=== PATIENT | male | born 1940 | race Caucasian/White ===

== ENCOUNTER 2023-07-01 22:24 | Emergency (ER) | payer MEDICARE, SELFPAY ==
[2023-07-01 22:25] VITALS: BP 136/61; PULSE 82; RESP 16; TEMP 36.6; O2SAT 97
--- NOTE | 2023-07-01 22:47 | CT_ITS ---
STUDY: CT BRAIN WITHOUT CONTRAST REASON FOR EXAM: Male, 82 years old. fall RADIATION DOSAGE (If Supplied By Facility): CTDIvol = ( 44.99 ) mGy, DLP = ( 796.11 ) mGycm TECHNIQUE: Transaxial CT imaging of the brain was performed without administration of intravenous contrast material. Individualized dose optimization techniques were used for this CT. COMPARISON: No relevant priors. FINDINGS: Moderate right parietal scalp hematoma. Normal calvarium. There is moderate cerebral atrophy with widening of the extra-axial spaces and ventricular dilatation. There are areas of decreased attenuation within the white matter tracts of the supratentorial brain, consistent with microvascular disease changes. Normal basal ganglia and thalami. Normal brainstem. Normal cerebellum. There is no intracranial hemorrhage. There are no findings of an acute ischemic infarction. Normal visualized paranasal sinuses. CT/Brain/Head without Contrast IMPRESSION: Moderate right parietal scalp hematoma. No intracranial hemorrhage. Electronically Signed: Kyle Sauceda MD at 23:29 EDT ,
--- NOTE | 2023-07-01 22:47 | ED.VIS.FALL ---
HPI HPI - Fall History of Present Illness Chief Complaint: Fall Informant: patient and family (x2) Narrative Narrative: 82-year-old male with history of dementia lives at home with family had an unwitnessed fall in the bathroom. Family went to check on him and they saw that he was alert and awake but had evidence of injury to his right head and upper extremity. He denies having any pain. Patient does not remember and history from him is limited due to his dementia. States he feels fine. Takes no anticoagulants, just baby aspirin no other antiplatelets. [facility] Medical History Dementia Allergy/AdvReac Type Severity Reaction Status Date / Time No Known Allergies Allergy Verified 07/01/23 22:28 Social History Smoking Status: Never smoker ROS ROS ED Review of Systems ROS Unobtainable: other Details: Limited ROS due to dementia Eyes Eyes: Denies change in vision ENT ENT ED: Denies ear pain or epistaxis Cardiovascular Cardiovascular: Denies chest pain Respiratory/Chest Respiratory/Chest: Denies dyspnea Gastrointestinal Gastrointestinal: Denies abdominal pain, nausea or vomiting Musculoskeletal Musculoskeletal: Denies back pain, extremity pain or neck pain Integumentary Denies laceration Neurologic Neurologic: Denies headache(s), paresthesias or weakness EXAM Physical Exam Const Vital Signs: 07/01/23 22:25 07/01/23 22:48 Temperature 97.8 F Temperature Source Temporal Pulse Rate 82 Respiratory Rate 16 Respiratory Effort Normal Blood Pressure 136/61 H Blood Pressure Mean 86 Pulse Ox 97 Oxygen Delivery Method Room Air Room Air Positive well nourished and well developed General Appearance ED: well developed and NAD HEENT Reports TM's clear and nasal mucous membranes and turbinates normal HEENT Narrative: Tenderness, contusion, hematoma right frontal parietal. Large around 15 cm diameter. It is boggy. There is no palpable crepitance or depression although this is limited due to the size of the hematoma. No Patel sign no periorbital ecchymosis. No CSF otorhinorrhea. trauma and hematoma Face and Sinus: facial tenderness Tympanic Membrane ED: Yes TM's clear Eyes PERRL and EOMs intact bilaterally Visual Acuity: other Other Details: no entrapment or pain with extraocular movements Neck full ROM and supple General: Negative for tenderness Chest Wall inspection of chest normal and palpation of chest normal Chest: symmetrical chest wall rise; Negative for crepitus or tenderness Resp normal respiratory effort and clear to auscultation bilaterally Percussion: other equal BS bilat Cardio Cardio Narrative: Faint heart sounds Rate: regular rate Rhythm: regular rhythm GI normal to inspection, nondistended, normoactive bowel sounds, soft to palpation and non-tender Back/Spine normal ROM Cervical Spine: Negative for cervical spine tenderness Thoracic Spine / Upper Back: Negative for thoracic spinal tenderness Lumbar Spine / Lower Back: Negative for lumbar spinal tenderness Extremity full ROM Extremity Narrative: Ecchymosis to the lateral aspect of the right elbow and the ulnar aspect of the right wrist. No tenderness. Full range of motion both of these joints without any pain including pronation supination at the wrist. The other 3 extremities move also without any signs of trauma or pain. General Extremety ED: Negative for tenderness Neuro CN's II-XII intact bilaterally, moves all extremities, no focal motor deficits and no sensory deficits noted Neuro Narrative: Alert and oriented to person and family, at baseline according to family Sahra Coma Scale: document GCS findings Spontaneous Obeys Commands Confused 14 Sensorium / Orientation: awake and alert Psych mental status grossly normal and thought process normal Skin no wounds Lesions: no lesions Rashes: no rashes MDM MDM MDM Narrative Medical decision making narrative: He has evidence of bruising to various aspect of the right upper extremity but he can move everything okay and there is no bony tenderness I do not think he needs any x-rays family in agreement. We did perform a CT of the head though. CT of the head was obtained in order to rule out intracranial injury, I reviewed the images and report which I agree with, negative for anything acute. Patient doing well, given family appropriate discharge instructions and reasons to return. Radiography Diagnostic Testing: Clinical Impression(s) from Imaging Studies Brain CT 07/01/23 22:47 IMPRESSION: Moderate right parietal scalp hematoma. No intracranial hemorrhage. Electronically Signed: Kyle Sauceda MD at 23:29 EDT , Discharge Plan Triage Chief Complaint: Fall ED Provider: Leander Ospina Dx/Rx/DC Orders Clinical Impression: Closed head injury without loss of consciousness, Contusion of multiple sites of right arm Instructions: ED Head Injury (Adult) Primary Care Provider: Care Physician,No Primary Referrals: Doctor,Your [Non-Staff] - As Needed Disposition Disposition: Home, Self Care
[2023-07-01 22:48] VITALS: BMI 26.4
== END 2023-07-02 00:58 | disposition home or self-care (01) ==
PROVIDERS: Emergency Provider Emergency Medicine; Visit Provider Emergency Medicine
DX: S09.90XA Unspecified injury of head, initial encounter (principal); F03.90 Unspecified dementia, unspecified severity, without behavioral disturbance, psychotic disturbance, mood disturbance, and anxiety; W19.XXXA Unspecified fall, initial encounter; S40.021A Contusion of right upper arm, initial encounter
CPT/HCPCS: 70450; 99282

== ENCOUNTER → 2023-08-22 | Outpatient (CLI) | payer MEDICARE, SELFPAY ==
[2023-08-22 16:49] LABS: Absolute Lymphocyte Count 1.31 X10^3/uL (0.83-4.51); Absolute Neutrophil Count 6.6 X10^3/uL (2.0-7.7); Basophil# 0.08 X10^3/uL; Basophil% 0.9 % (0-1); Eosinophil# 0.03 X10^3/uL; Eosinophils% 0.3 % (0-5); Hematocrit 47.1 % (40-54); Hemoglobin 16.9 g/dL (13.0-16.5); Lymphocyte # 1.31 X10^3/ul (0.83-4.51); Lymphocyte % 14.5 % (19-41); Mean Corp Hgb Conc 35.9 g/dL (32-36); Mean Corpuscular Hgb 42.3 pg (27.0-32.0); Mean Corpuscular Volume 117.8 fL (80-94); Mean Platelet Vol. 10.3 fl (6.2-12.0); Monocyte# 0.94 X10^3/uL; Monocyte% 10.4 % (0-10); NRBC Flagged by Analyzer 0 % (0-5); Neutrophil # 6.59 X10^3/uL (2.7-7.7); Neutrophil % 73.2 % (47-70); Platelet Count 215 K/mm3 (150-450); RBC Distribution Width SD 49.1 fl (35.1-43.9)
[2023-08-22 17:12] LABS: Color, Urine Yellow (Yellow); Glucose, Dipstick Normal (Normal); Ketone-Dipstick 5 mg/dl (Negative); Leukocyte Esterase-Dipstick 500 /ul (Negative); Nitrite-Dipstick Positive (Negative); Occult Blood-Urine Negative /ul (Negative); Protein-Dipstick 30 mg/dl (Negative); Specific Gravity, Urine 1.005 (1.002-1.030); Urine Bilirubin Dipstick Negative (Negative); Urine Clarity Clear (Clear); Urine Urobilinogen Normal (Normal)
[2023-08-22 17:59] LABS: ALB/GLOB Ratio 0.8 RATIO (0.9-2.4); AST(SGOT) 28 U/L (15-37); Alanine Aminotransfer ALT/SGPT 30 U/L (16-61); Albumin, Serum 3.5 g/dL (3.2-5.0); Alkaline Phosphatase 160 U/L (45-117); Anion Gap 5 (5-15); BUN 10 mg/dL (7-18); BUN/Creat Ratio 7.8 RATIO (10-20); Calcium,Total 9.3 mg/dL (8.5-10.1); Chloride 99 mmol/L (98-107); Cholesterol 165 mg/dL (200); Creatinine, Serum 1.29 mg/dL (0.70-1.30); EST Glomerular Filtration Rate 56 mL/min (>60); Est Glom Filt Rate - Afr Amer 68 mL/min (>60); Globulin 4.2 g/dL (2.2-4.2); Glucose 110 mg/dL (74-106); High Density Lipoprotein 86 mg/dL; Potassium 3.7 mmol/L (3.5-5.1); Protein, Total 7.7 g/dL (6.4-8.2); Sodium Level 128 mmol/L (136-145); Thyroid Stim Hormone (TSH) 1.93 uIU/mL (0.358-3.74); Triglycerides 97 mg/dL; Uric Acid 2.5 mg/dL (3.5-7.2); Very Low Density Lipoprotein 19 mg/dL (5-40)
[2023-08-22 18:26] LABS: Hepatitis C Antibody Non-Reactive (Nonreactive); Syphilis Antibodies Non-reactive; Vitamin B12 1975 pg/mL (211-911); Vitamin D,25 Hydroxy 76.3 ng/mL
== END | disposition home or self-care (01) ==
LOC: LAB 15:40
PROVIDERS: Referring Provider Family Medicine Geriatric Medicine; Visit Provider Family Medicine Geriatric Medicine
DX: E78.5 Hyperlipidemia, unspecified (principal); I10 Essential (primary) hypertension; Z13.89 Encounter for screening for other disorder; M10.9 Gout, unspecified; E55.9 Vitamin D deficiency, unspecified; N39.0 Urinary tract infection, site not specified
CPT/HCPCS: 36415; 80053; 80061; 81002; 82306; 82607; 82746; 84443; 84550; 85025; 86780; 86803

== ENCOUNTER → 2023-09-02 | Outpatient (CLI) | payer MEDICARE, SELFPAY ==
--- NOTE | 2023-09-02 13:07 | US_ITS ---
STUDY: ULTRASOUND - URINARY BLADDER REASON FOR EXAM: Male, 82 years old. UTI TECHNIQUE: Ultrasound evaluation of the urinary bladder was performed with real-time and static fairchild-scale imaging. COMPARISON: None. FINDINGS: There is no right UVJ calculus. There is a visualized right ureteral jet. There is no left UVJ calculus. There is a visualized left ureteral jet. The distended volume of the urinary bladder is 650 ml. The empty volume of the urinary bladder is 314 ml. The bladder wall is diffusely thickened. The bladder wall measures 5 mm. There is no demonstrated bladder wall mass lesion. There are no demonstrated bladder calculi. US/Post Void Residual Bladder IMPRESSION: Significant postvoid residual with diffuse bladder wall thickening possibly from bladder outlet obstruction. Electronically Signed: Kyle Sauceda MD at 15:52 EDT ,
== END | disposition home or self-care (01) ==
PROVIDERS: PCP Family Medicine Geriatric Medicine; Referring Provider Family Medicine Geriatric Medicine; Visit Provider Family Medicine Geriatric Medicine
DX: N39.0 Urinary tract infection, site not specified (principal); E87.1 Hypo-osmolality and hyponatremia; I10 Essential (primary) hypertension; R32 Unspecified urinary incontinence
CPT/HCPCS: 36415; 51798; 80048; 83930; 83935; 84300

== ENCOUNTER → 2023-09-02 | Outpatient (CLI) | payer MEDICARE, SELFPAY ==
[2023-09-02 16:18] LABS: Anion Gap 8 (5-15); BUN 8 mg/dL (7-18); BUN/Creat Ratio 5.4 RATIO (10-20); Calcium,Total 9.1 mg/dL (8.5-10.1); Chloride 96 mmol/L (98-107); Creatinine, Serum 1.48 mg/dL (0.70-1.30); EST Glomerular Filtration Rate 48 mL/min (>60); Est Glom Filt Rate - Afr Amer 58 mL/min (>60); Glucose 106 mg/dL (74-106); Potassium 3.1 mmol/L (3.5-5.1); Sodium Level 132 mmol/L (136-145)
[2023-09-02 17:55] LABS: Urine Sodium 38 mmol/L (Not Establ.)
[2023-09-02 18:03] LABS: Osmolality, Serum 282 mOsm/KG (280-301); Osmolality, Urine 154 mOsm/KG
== END | disposition home or self-care (01) ==
LOC: POLAB3 14:25
PROVIDERS: PCP Family Medicine Geriatric Medicine; Referring Provider Family Medicine Geriatric Medicine; Visit Provider Family Medicine Geriatric Medicine
DX: E87.1 Hypo-osmolality and hyponatremia (principal); I10 Essential (primary) hypertension
CPT/HCPCS: 36415; 80048; 83930; 83935; 84300

== ENCOUNTER → 2023-09-24 | Outpatient (CLI) | payer MEDICARE, SELFPAY ==
[2023-09-24 11:18] LABS: Anion Gap 7 (5-15); BUN 13 mg/dL (7-18); BUN/Creat Ratio 9.9 RATIO (10-20); Calcium,Total 9.5 mg/dL (8.5-10.1); Chloride 97 mmol/L (98-107); Creatinine, Serum 1.31 mg/dL (0.70-1.30); EST Glomerular Filtration Rate 55 mL/min (>60); Est Glom Filt Rate - Afr Amer 67 mL/min (>60); Glucose 108 mg/dL (74-106); PSA,Total - Annual Screen 3.13 ng/mL (0.00-4.00); Potassium 3.9 mmol/L (3.5-5.1); Sodium Level 130 mmol/L (136-145)
== END | disposition home or self-care (01) ==
LOC: LAB 10:11
PROVIDERS: PCP Family Medicine Geriatric Medicine; Referring Provider Urology; Visit Provider Urology
DX: Z12.5 Encounter for screening for malignant neoplasm of prostate (principal); I10 Essential (primary) hypertension
CPT/HCPCS: 36415; 80048; 84153; G0103

== ENCOUNTER → 2024-02-17 | Outpatient (CLI) | payer MEDICARE, SELFPAY ==
[2024-02-17 15:54] LABS: Absolute Lymphocyte Count 1.07 X10^3/uL (0.83-4.51); Absolute Neutrophil Count 3.9 X10^3/uL (2.0-7.7); Basophil# 0.04 X10^3/uL; Basophil% 0.7 % (0-1); Eosinophil# 0.07 X10^3/uL; Eosinophils% 1.2 % (0-5); Hematocrit 40.8 % (40-54); Hemoglobin 14.9 g/dL (13.0-16.5); Lymphocyte # 1.07 X10^3/ul (0.83-4.51); Lymphocyte % 18.4 % (19-41); Mean Corp Hgb Conc 36.5 g/dL (32-36); Mean Corpuscular Hgb 44.1 pg (27.0-32.0); Mean Corpuscular Volume 120.7 fL (80-94); Mean Platelet Vol. 9.1 fl (6.2-12.0); Monocyte# 0.71 X10^3/uL; Monocyte% 12.2 % (0-10); NRBC Flagged by Analyzer 0 % (0-5); Neutrophil # 3.88 X10^3/uL (2.7-7.7); Neutrophil % 66.8 % (47-70); Platelet Count 238 K/mm3 (150-450); RBC Distribution Width CV 12.1 % (11.6-14.6); RBC Distribution Width SD 54.7 fl (35.1-43.9); Red Blood Count 3.38 M/mm3 (4.6-6.2); White Blood Count 5.8 K/mm3 (4.4-11.0)
[2024-02-17 16:14] LABS: Vitamin D,25 Hydroxy 27.7 ng/mL
[2024-02-17 16:21] LABS: ALB/GLOB Ratio 0.8 RATIO (0.9-2.4); AST(SGOT) 20 U/L (15-37); Alanine Aminotransfer ALT/SGPT 22 U/L (16-61); Albumin, Serum 3.3 g/dL (3.2-5.0); Alkaline Phosphatase 125 U/L (45-117); Anion Gap 7 (5-15); BUN 19 mg/dL (7-18); BUN/Creat Ratio 10.3 RATIO (10-20); Calcium,Total 9.1 mg/dL (8.5-10.1); Chloride 104 mmol/L (98-107); Cholesterol 273 mg/dL (200); Creatinine, Serum 1.85 mg/dL (0.70-1.30); EST Glomerular Filtration Rate 37 mL/min (>60); Est Glom Filt Rate - Afr Amer 45 mL/min (>60); Globulin 4.1 g/dL (2.2-4.2); Glucose 133 mg/dL (74-106); High Density Lipoprotein 41 mg/dL; Potassium 4.5 mmol/L (3.5-5.1); Protein, Total 7.4 g/dL (6.4-8.2); Sodium Level 135 mmol/L (136-145); Triglycerides 506 mg/dL; Uric Acid 4.3 mg/dL (3.5-7.2)
== END | disposition home or self-care (01) ==
LOC: LAB 15:17
PROVIDERS: PCP Family Medicine Geriatric Medicine; Referring Provider Family Medicine Geriatric Medicine; Visit Provider Family Medicine Geriatric Medicine
DX: I10 Essential (primary) hypertension (principal); E78.5 Hyperlipidemia, unspecified; E55.9 Vitamin D deficiency, unspecified; M10.9 Gout, unspecified
CPT/HCPCS: 36415; 80053; 80061; 82306; 84443; 84550; 85025

== ENCOUNTER → 2024-05-26 | Outpatient (CLI) | payer MEDICARE, SELFPAY | END | disposition home or self-care (01) | PROVIDERS: PCP Family Medicine Geriatric Medicine; Referring Provider Family Medicine Geriatric Medicine; Visit Provider Family Medicine Geriatric Medicine | DX: J98.8 Other specified respiratory disorders (principal); R63.0 Anorexia | CPT/HCPCS: 36415; 71046; 80053; 85025; 87631 ==

== ENCOUNTER → 2024-05-26 | Outpatient (CLI) | payer MEDICARE, SELFPAY ==
--- NOTE | 2024-05-26 16:42 | RAD_ITS ---
PROCEDURE: CHEST PA AND LATERAL 05/26/2024 REASON FOR EXAM: CONGESTION OF RESPIRATORY TRACT TECHNIQUE: Frontal and lateral views of the chest. COMPARISON: None available FINDINGS: The lungs appear clear. Pulmonary vascularity appears within limits. No pleural effusion. The cardiac and mediastinal contours appear within limits. Ectatic appearing thoracic aorta with atherosclerotic change of the arch. 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 RAD/Chest PA and Lateral IMPRESSION: No evidence of acute disease. Reading Location: [id number]
[2024-05-26 17:24] LABS: Absolute Lymphocyte Count 1.17 X10^3/uL (0.83-4.51); Absolute Neutrophil Count 3.6 X10^3/uL (2.0-7.7); Basophil# 0.04 X10^3/uL; Basophil% 0.7 % (0-1); Eosinophil# 0.02 X10^3/uL; Eosinophils% 0.4 % (0-5); Hematocrit 41.5 % (40-54); Hemoglobin 15.1 g/dL (13.0-16.5); Lymphocyte # 1.17 X10^3/ul (0.83-4.51); Lymphocyte % 20.5 % (19-41); Mean Corp Hgb Conc 36.4 g/dL (32-36); Mean Corpuscular Hgb 42.8 pg (27.0-32.0); Mean Corpuscular Volume 117.6 fL (80-94); NRBC Flagged by Analyzer 0 % (0-5); Neutrophil # 3.64 X10^3/uL (2.7-7.7); Neutrophil % 63.9 % (47-70); Platelet Count 195 K/mm3 (150-450); RBC Distribution Width CV 13.7 % (11.6-14.6); RBC Distribution Width SD 60.7 fl (35.1-43.9); Red Blood Count 3.53 M/mm3 (4.6-6.2); White Blood Count 5.7 K/mm3 (4.4-11.0)
[2024-05-26 18:07] LABS: ALB/GLOB Ratio 1.1 RATIO (0.9-2.4); AST(SGOT) 24 U/L (<=37); Alanine Aminotransfer ALT/SGPT 10 U/L (<=46); Albumin, Serum 3.9 g/dL (3.4-4.8); Alkaline Phosphatase 141 U/L (40-129); Anion Gap 16 (5-15); BUN 27 mg/dL (4-19); BUN/Creat Ratio 15.5 RATIO (10-20); Calcium,Total 9.1 mg/dL (7.6-11.0); Carbon Dioxide 17.9 mmol/L (21.0-32.0); Chloride 103 mmol/L (98-108); Creatinine, Serum 1.74 mg/dL (0.70-1.20); EST Glomerular Filtration Rate 38 (>60); Globulin 3.6 g/dL (2.2-4.2); Glucose 133 mg/dL (70-99); Potassium 3.9 mmol/L (3.3-5.1); Protein, Total 7.4 g/dL (5.9-8.4); Sodium Level 136 mmol/L (133-145); Total Bilirubin 0.39 mg/dL (0.00-1.30)
== END | disposition home or self-care (01) ==
PROVIDERS: PCP Family Medicine Geriatric Medicine; Referring Provider Family Medicine Geriatric Medicine; Visit Provider Family Medicine Geriatric Medicine
DX: J98.8 Other specified respiratory disorders (principal); R63.0 Anorexia
CPT/HCPCS: 36415; 71046; 80053; 85025

== ENCOUNTER → 2024-08-24 | Outpatient (CLI) | payer MEDICARE, SELFPAY ==
[2024-08-24 16:05] LABS: Absolute Neutrophil Count 3.1 X10^3/uL (2.0-7.7); Basophil# 0.02 X10^3/uL; Basophil% 0.4 % (0-1); Eosinophil# 0.02 X10^3/uL; Eosinophils% 0.4 % (0-5); Hematocrit 40.3 % (40-54); Hemoglobin 14.4 g/dL (13.0-16.5); Lymphocyte % 17.4 % (19-41); Mean Corp Hgb Conc 35.7 g/dL (32-36); Mean Corpuscular Hgb 43.1 pg (27.0-32.0); Mean Corpuscular Volume 120.7 fL (80-94); Mean Platelet Vol. 9.9 fl (6.2-12.0); Monocyte# 0.67 X10^3/uL; Monocyte% 14.5 % (0-10); NRBC Flagged by Analyzer 0 % (0-5); Neutrophil # 3.07 X10^3/uL (2.7-7.7); Neutrophil % 66.6 % (47-70); Platelet Count 210 K/mm3 (150-450); RBC Distribution Width CV 13.2 % (11.6-14.6); Red Blood Count 3.34 M/mm3 (4.6-6.2); White Blood Count 4.6 K/mm3 (4.4-11.0)
[2024-08-24 17:05] LABS: ALB/GLOB Ratio 1.2 RATIO (0.9-2.4); AST(SGOT) 23 U/L (<=37); Alanine Aminotransfer ALT/SGPT 14 U/L (<=46); Alkaline Phosphatase 119 U/L (40-129); Anion Gap 13 (5-15); BUN 25 mg/dL (4-19); BUN/Creat Ratio 14.9 RATIO (10-20); Calcium,Total 9.1 mg/dL (7.6-11.0); Carbon Dioxide 22.2 mmol/L (21.0-32.0); Chloride 100 mmol/L (98-108); Creatinine, Serum 1.66 mg/dL (0.70-1.20); EST Glomerular Filtration Rate 40 (>60); Globulin 3.3 g/dL (2.2-4.2); Glucose 113 mg/dL (70-99); Potassium 4.1 mmol/L (3.3-5.1); Protein, Total 7.3 g/dL (5.9-8.4); Sodium Level 135 mmol/L (133-145); Total Bilirubin 0.58 mg/dL (0.00-1.30)
[2024-08-24 17:15] LABS: Vitamin D,25 Hydroxy 36.3 ng/mL (30-100)
== END | disposition home or self-care (01) ==
LOC: LAB 15:07
PROVIDERS: PCP Family Medicine Geriatric Medicine; Referring Provider Family Medicine Geriatric Medicine; Visit Provider Family Medicine Geriatric Medicine
DX: I10 Essential (primary) hypertension (principal); M10.9 Gout, unspecified; E55.9 Vitamin D deficiency, unspecified
CPT/HCPCS: 36415; 80053; 82306; 84443; 84550; 85025

== ENCOUNTER → 2024-10-20 | Outpatient (CLI) | payer MEDICARE, SELFPAY ==
--- OUTSIDE RECORDS SUMMARY | 2024-10-20 21:19 | XMS RPT_ITS | CCD ---
Author Organization [facility] Care Team Providers Care [facility] Paramedic Name Role Phone Unavailable Primary Care Provider Unavaileliud e Jacques CELESTIN, Dr. Georges Gonzalez Primary Care Provider Jacques CELESTIN, Dr. Georges Gonzalze Attending Provider Jacques CELESTIN, Dr. Georges Gonzalez Referring Provider [phone] Jacques CELESTIN, Dr. Georges Gonzalez Primary Care Provider [phone] Jacques CELESTIN, Dr. Georges Gonzalez Attending Provider Jacques CELESTIN, Dr. Georges Gonzalez Referring Provider Jacques, Georges Chi Referring Unavailable Jacques, Georges Chi Primary Care Unavailable Jacques, Georges Chi Attending Unavailable Jacques, Georges Chi Primary Care Unavailable Jacques, Georges Chi Attending Unavailable Jacques, Georges Chi Referring Unavailable Jacques, Georges Chi Referring Unavailable Jacques, Georges Chi Primary Care Unavailable Jacques, Georges Chi Attending Unavailable Jacques, Georges Chi Primary Care Unavailable Jacques, Georges Chi Attending Unavailable Jacques, Georges Chi Referring Unavailable Jacques, Georges Chi Primary Care Unavailable Jacques, Georges Chi Attending Unavailable Jacques, Georges Chi Referring Unavailable Medications Current Medications Medication Drug Class(es) Dates Sig (Normalized) Sig (Original) doxycycline monohydrate 100 mg oral tablet (1 source) Tetracycline-class Drug Start: 05-20-2023 End: 05-27-2023 take 1 tablet by mouth twice daily doxycycline monohydrate 100 mg tablet Take 1 tablet by mouth two times a day for 7 days. 14 tablet 0 05/20/2023 05/27/2023 Active Comment on above: Take 1 tablet by cherie th two times a day for 7 days. lisinopril 20 mg oral tablet (2 sources) Angiotensin Converting Enzyme Inhibitor Start: 09-04-2007 LISINOPRIL 20 MG TAB Take one(1) tablet daily. 90 3 09/04/2007 Active Comment on above: Take one(1) tablet d aily. simvastatin 20 mg oral tablet (2 sources) HMG-CoA Reductase Inhibitor Start: 09-04-2007 SIMVASTATIN 20 MG TAB Take one(1) tablet daily. 90 3 09/04/2007 Active Comment on above: Take one(1) tablet d aily. Problems Active Problems Problem Classification Problem Date Documented Da te Episodic/Chronic Disorders of lipid metabolism (2 sources) Hyperlipidemia; Translations: [Hyperlipidemia, unspecified] Onset: 09-02-2006 09-02-2006 Chronic Essential hypertension (3 sources) Benign essential hypertension; Translations: [Essential (primary) hypertension] Onset: 08-26-2024 04-11-2005 Chronic Other and unspecified benign neoplasm (2 sources) History of polyp of colon; Translations: [Personal history of colonic polyps] 04-11-2005 Episodic Other injuries and conditions due to external causes (4 sources) Closed injury of head; Translations: [Unspecified injury of head, initial encounter] 07-02-2023 Episodic Other lower respiratory disease (2 sources) Cough; Translations: [Subacute cough] 05-20-2023 Episodic Other lower respiratory disease (2 sources) Other specified respiratory disorders; Translations: [Other specified respiratory disorders] Onset: 05-30-2024 Episodic Pneumonia (except that caused by tuberculosis or sexually transmitted disease) (1 source) Bronchopneumonia; Translations: [Bronchopneumonia, unspecified organism] 05-20-2023 Episodic Superficial injury; contusion (4 sources) Contusion of multiple sites of upper limb; Translations: [Contusion of right upper arm, initial encounter] 07-02-2023 Episodic Unclassified (1 source) Subacute cough; Translations: [Subacute cough] Onset: 05-20-2023 Past or Other Problems Problem Classification Problem Date Documented Da te Episodic/Chronic Other connective tissue disease (2 sources) Plantar fascial fibromatosis; Translations: [Plantar fascial fibromatosis] Onset: 09-26-2005 09-26-2005 Episodic Other connective tissue disease (2 sources) Pain in limb; Translations: [Pain in unspecified limb] Onset: 09-04-2007 09-04-2007 Episodic Other screening for suspected conditions (not mental disorders or infectious disease) (2 sources) Patient encounter status; Translations: [Encounter for screening for malignant neoplasm of prostate] Onset: 04-12-2005 04-12-2005 Episodic Results Test Name Value Interpretation Reference Range Facility Absolute lymphocyte countOrd ered By: Georges Hanna on 08-24-2024 Lymphocytes Auto (Unsp spec) [#/Vol] 0.80 10*3/uL Low 0.83-4.51 [facility] Absolute neutrophil countOrd ered By: Georges Hanna on 08-24-2024 Neutrophils (Bld) [#/Vol] 3.1 10*3/uL 2.0-7.7 [facility] Anion gap in Serum or Plasma Ordered By: Georges Hanna on 08-24-2024 Anion gap [Moles/Vol] 13 mmol/L 5-15 [facility] Automated lymphocyte count a s percentage of total leukocytesOrdered By: Georges Hanna on 08-24-2024 Lymphocytes/100 WBC Auto (Unsp spec) 17.4 % Low 19-41 [facility] BUN/creatinine [facility]Ordered By: [facility] 08-24-2024 Urea nitrogen/Creatinine [Mass ratio] 14.9 mg/mg 10-20 [facility] Basophil percentageOrdered B y: Georges Hanna on 08-24-2024 Basophils/100 WBC (Bld) 0.4 % 0-1 [facility] Bilirubin, totalOrdered By: Georges Hanna on 08-24-2024 Bilirubin [Mass/Vol] 0.58 mg/dL 0.00-1.30 [facility] CBC W/Diff, Automatedon 07-28 Absolute Lymph 0.80 X10 3/uL Low 0.83-4.51 [facility] Comment on above: Performed By: #### L [id number], L100.0100, L501.1400, L500.4050, L506.1001 #### [facility] [address] [place], [address] Absolute Neut 3.1 X10 3/uL Normal 2.0-7.7 [facility] Comment on above: Performed By: #### L [id number], L100.0100, L501.1400, L500.4050, L506.1001 #### [facility] [address] [place], [address] Basophils/100 WBC (Bld) 0.4 % Normal 0-1 [facility] Comment on above: Performed By: #### L [id number], L100.0100, L501.1400, L500.4050, [id number] #### [facility] [address] [place], [address] Eosinophils/100 WBC (Bld) 0.4 % Normal 0-5 [facility] Comment on above: Performed By: #### L [id number], L100.0100, L501.1400, L500.4050, L506.1001 #### [facility] [address] [place], [address] Erythrocyte distribution width (RBC) [Ratio] 13.2 % Normal 11.6-14.6 [facility] Comment on above: Performed By: #### L [id number], L100.0100, L501.1400, L500.4050, L506.1001 #### [facility] [address] [place], [address] Hematocrit (Bld) [Volume fraction] 40.3 % Normal 40-54 [facility] Comment on above: Performed By: #### L [id number], L100.0100, L501.1400, L500.4050, L506.1001 #### [facility] [address] [place], [address] Hemoglobin (Bld) [Mass/Vol] 14.4 g/dL Normal 13.0-16.5 [facility] Comment on above: Performed By: #### L [id number], L100.0100, L501.1400, L500.4050, L506.1001 #### [facility] [address] [place], [address] IG% 0.700 Normal 0.0-0.9 [facility] Comment on above: Result Comment: IG% - Immature Granulocytes (promyelocytes, myelocytes and metamyelocytes) > 1% indicates that a LEFT SHIFT is Present. Performed By: #### L [id number], L100.0100, L501.1400, L500.4050, L506.1001 #### [facility] [address] [place], [address] Lymphocytes/100 WBC (Bld) 17.4 % Low 19-41 [facility] Comment on above: Performed By: #### L [id number], L100.0100, L501.1400, L500.4050, L506.1001 #### [facility] [address] [place], [address] MCH (RBC) [Entitic mass] 43.1 pg High 27.0-32.0 [facility] Comment on above: Performed By: #### L [id number], L100.0100, L501.1400, L500.4050, L506.1001 #### [facility] [address] [place], [address] MCHC (RBC) [Mass/Vol] 35.7 g/dL Normal 32-36 [facility] Comment on above: Performed By: #### L [id number], L100.0100, L501.1400, L500.4050, L506.1001 #### [facility] [address] [place], [address] MCV (RBC) [Entitic vol] 120.7 fL High 80-94 [facility] Comment on above: Performed By: #### L [id number], L100.0100, L501.1400, L500.4050, L506.1001 #### [facility] [address] [place], [address] Monocytes/100 WBC (Bld) 14.5 % High 0-10 [facility] Comment on above: Performed By: #### L [id number], L100.0100, L501.1400, L500.4050, L506.1001 #### [facility] [address] [place], [address] Neutrophils/100 WBC (Bld) 66.6 % Normal 47-70 [facility] Comment on above: Performed By: #### L [id number], L100.0100, L501.1400, L500.4050, L506.1001 #### [facility] [address] [place], [address] Nucleated RBC (Bld) [#/Vol] 0 10*3/uL Normal 0-5 [facility] Comment on above: Performed By: #### L [id number], L100.0100, L501.1400, L500.4050, L506.1001 #### [facility] [address] [place], [address] Platelet mean volume (Bld) [Entitic vol] 9.9 fL Normal 6.2-12.0 [facility] Comment on above: Performed By: #### L [id number], L100.0100, L501.1400, L500.4050, L506.1001 #### [facility] [address] [place], [address] Platelets (Bld) [#/Vol] 210 10*3/uL Normal 150-450 [facility] Comment on above: Performed By: #### L [id number], L100.0100, L501.1400, L500.4050, L506.1001 #### [facility] [address] [place], [address] RBC (Bld) [#/Vol] 3.34 10*6/uL Low 4.6-6.2 [facility] Comment on above: Performed By: #### L [id number], L100.0100, L501.1400, L500.4050, L506.1001 #### [facility] [address] [place], [address] RDW SD 59.0 fl High 35.1-43.9 [facility] Comment on above: Performed By: #### L [id number], L100.0100, L501.1400, L500.4050, L506.1001 #### [facility] [address] [place], [address] WBC (Bld) [#/Vol] 4.6 10*3/uL Normal 4.4-11.0 [facility] Comment on above: Performed By: #### L [id number], L100.0100, L501.1400, L500.4050, L506.1001 #### [facility] [address] [place], [address] Carbon dioxide, total [Moles /volume] in Central venous bloodOrdered By: Georges Hanna on 08-24-2024 CO2 [Moles/Vol] 22.2 mmol/L 21.0-32.0 [facility] Chloride assayOrdered By: Herman Hanna on 08-24-2024 Chloride [Moles/Vol] 100 mmol/L 98-108 [facility] Comprehensive Metabolic Prof ilon 08-24-2024 Albumin [Mass/Vol] 4.0 g/dL Normal 3.4-4.8 [facility] Comment on above: Performed By: #### L [id number], L100.0100, L501.1400, L500.4050, L506.1001 #### [facility] [address] [place], [address] Albumin/Globulin [Mass ratio] 1.2 {ratio} Normal 0.9-2.4 [facility] Comment on above: Performed By: #### L [id number], L100.0100, L501.1400, L500.4050, L506.1001 #### [facility] [address] [place], [address] ALK PHOS 119 U/L Normal 40-129 [facility] Comment on above: Performed By: #### L [id number], L100.0100, L501.1400, L500.4050, L506.1001 #### [facility] [address] [place], [address] ALT [Catalytic activity/Vol] 14 U/L Normal <=46 [facility] Comment on above: Performed By: #### L [id number], L100.0100, L501.1400, L500.4050, L506.1001 #### [facility] [address] [place], [address] AST [Catalytic activity/Vol] 23 U/L Normal <=37 [facility] Comment on above: Performed By: #### L [id number], L100.0100, L501.1400, L500.4050, L506.1001 #### [facility] [address] [place], [address] Bilirubin [Mass/Vol] 0.58 mg/dL Normal 0.00-1.30 [facility] Comment on above: Performed By: #### L [id number], L100.0100, L501.1400, L500.4050, L506.1001 #### [facility] [address] [place], [address] BUN/CRE 14.9 RATIO Normal 10-20 [facility] Comment on above: Performed By: #### L [id number], L100.0100, L501.1400, L500.4050, L506.1001 #### [facility] [address] [place], [address] Calcium [Mass/Vol] 9.1 mg/dL Normal 7.6-11.0 [facility] Comment on above: Performed By: #### L [id number], L100.0100, L501.1400, L500.4050, L506.1001 #### [facility] [address] [place], [address] Chloride [Moles/Vol] 100 mmol/L Normal 98-108 [facility] Comment on above: Performed By: #### L [id number], L100.0100, L501.1400, L500.4050, L506.1001 #### [facility] [address] [place], [address] CO2 [Moles/Vol] 22.2 mmol/L Normal 21.0-32.0 [facility] Comment on above: Performed By: #### L [id number], L100.0100, L501.1400, L500.4050, L506.1001 #### [facility] [address] [place], [address] Creatinine [Mass/Vol] 1.66 mg/dL High 0.70-1.20 [facility] Comment on above: Performed By: #### L [id number], L100.0100, L501.1400, L500.4050, L506.1001 #### [facility] [address] [place], [address] GAP 13 Normal 5-15 [facility] Comment on above: Performed By: #### L [id number], L100.0100, L501.1400, L500.4050, L506.1001 #### [facility] [address] [place], [address] GFR/1.73 sq M.predicted among non-blacks MDRD (S/P/Bld) [Vol rate/Area] 40 mL/min/{1.73_m2} Low >60 [facility] Comment on above: Result Comment: mL/m in/1.73m2 CKD-EPI Creatinine Equation (2020) Performed By: #### L [id number], L100.0100, L501.1400, L500.4050, L506.1001 #### [facility] [address] [place], [address] Globulin (S) [Mass/Vol] 3.3 g/dL Normal 2.2-4.2 [facility] Comment on above: Performed By: #### L [id number], L100.0100, L501.1400, L500.4050, L506.1001 #### [facility] [address] [place], [address] Glucose [Mass/Vol] 113 mg/dL High 70-99 [facility] Comment on above: Performed By: #### L 501.9520, L100.0100, L501.1400, L500.4050, L506.1001 #### [facility] [address] [place], [address] Potassium [Moles/Vol] 4.1 mmol/L Normal 3.3-5.1 [facility] Comment on above: Performed By: #### L 501.9520, L100.0100, L501.1400, L500.4050, L506.1001 #### [facility] [address] [place], [address] Sodium [Moles/Vol] 135 mmol/L Normal 133-145 [facility] Comment on above: Performed By: #### L 501.9520, L100.0100, L501.1400, L500.4050, L506.1001 #### [facility] [address] [place], [address] T PROT 7.3 g/dL Normal 5.9-8.4 [facility] Comment on above: Performed By: #### L 501.9520, L100.0100, L501.1400, L500.4050, L506.1001 #### [facility] [address] [place], [address] Urea nitrogen [Mass/Vol] 25 mg/dL High 4-19 [facility] Comment on above: Performed By: #### L [id number], L100.0100, L501.1400, L500.4050, L506.1001 #### [facility] [address] [place], [address] Eosinophil percentageOrdered By: [facility] on 08-24-2024 Eosinophils/100 WBC (Bld) 0.4 % 0-5 [facility] Erythrocyte distribution wid th ratioOrdered By: [facility] on 08-24-2024 Erythrocyte distribution width (RBC) [Ratio] 13.2 % 11.6-14.6 [facility] Erythrocyte distribution wid th standard deviationOrdered By: [facility] on 08-24-2024 Erythrocyte distribution width (RBC) [Ratio] 59.0 fl High 35.1-43.9 [facility] Glomerular filtration rate ( GFR) estimation/1.73 sq m using serum, plasma, or whole bOrdered By: [facility] on 08-24-2024 GFR/1.73 sq M.predicted among non-blacks MDRD (S/P/Bld) [Vol rate/Area] 40 mL/min/{1.73_m2} Low >60 [facility] Comment on above: mL/min/1.73m2 CKD-EP I Creatinine Equation (2020) Hematocrit Auto (Bld) [Volum e fraction]Ordered By: [facility] 08-24-2024 Hematocrit (Bld) [Volume fraction] 40.3 % 40-54 [facility] Hemoglobin measurementOrdere d By: [facility] 08-24-2024 Hemoglobin (Bld) [Mass/Vol] 14.4 g/dL 13.0-16.5 [facility] Immature granulocytes/100 WB C Auto (Bld)Ordered By: Georges Jacques 08-24-2024 Immature granulocytes/100 WBC (Bld) 0.700 % 0.0-0.9 [facility] Comment on above: IG% - Immature Granu locytes (promyelocytes, myelocytes and metamyelocytes) > 1% indicates that a LEFT SHIFT is Present. Laboratory - Chemistry and C hemistry - challengeOrdered By: Georges Hanna on 08-24-2024 AST [Catalytic activity/Vol] 23 U/L <38 [facility] MCV (mean corpuscular volume ) determinationOrdered By: Georges Hanna on 08-24-2024 MCV (RBC) [Entitic vol] 120.7 fL High 80-94 [facility] Mean corpuscular hemoglobin (MCH) determinationOrdered By: Georges Hanna on 08-24-2024 MCH (RBC) [Entitic mass] 43.1 pg High 27.0-32.0 [facility] Mean corpuscular hemoglobin concentration (MCHC) determinationOrdered By: Georges Hanna on 08-24-2024 MCHC (RBC) [Mass/Vol] 35.7 g/dL 32-36 [facility] Mean platelet volume determi nationOrdered By: Georges Hanna on 08-24-2024 Platelet mean volume (Bld) [Entitic vol] 9.9 fL 6.2-12.0 [facility] Monocyte percentageOrdered B y: Georges Hanna on 08-24-2024 Monocytes/100 WBC (Bld) 14.5 % High 0-10 [facility] Neutrophil percentageOrdered By: Georges Hanna on 08-24-2024 Neutrophils/100 WBC (Bld) 66.6 % 47-70 [facility] Nucleated red blood cell per centageOrdered By: Georges Hanna on 08-24-2024 Nucleated RBC/100 WBC (Bld) [Ratio] 0 % 0-5 [facility] Platelet countOrdered By: Herman Hanna on 08-24-2024 Platelets (Bld) [#/Vol] 210 10*3/uL 150-450 [facility] Potassium measurement (mass/ volume)Ordered By: Georges Hanna on 08-24-2024 Potassium (Unsp spec) [Mass/Vol] 4.1 mmol/L 3.3-5.1 [facility] RBC Auto (Bld) [#/Vol]Ordere d By: Georges Hanna on 08-24-2024 RBC (Bld) [#/Vol] 3.34 10*6/uL Low 4.6-6.2 [facility] Serum creatinine measurement (mass/volume)Ordered By: Georges Hanna on 08-24-2024 Creatinine [Mass/Vol] 1.66 mg/dL High 0.70-1.20 [facility] Serum globulin measurementOr dered By: Georges Hanna on 08-24-2024 Globulin (S) [Mass/Vol] 3.3 g/dL 2.2-4.2 [facility] Serum glucose measurement (m ass/volume)Ordered By: Georges Hanna on 08-24-2024 Glucose [Mass/Vol] 113 mg/dL High 70-99 [facility] Serum or plasma alanine [place] otransferase (ALT) measurementOrdered By: Georges Hanna 08-24-2024 ALT [Catalytic activity/Vol] 14 U/L <47 [facility] Serum or plasma albumin belia urement (mass/volume)Ordered By: Georges Hanna 08-24-2024 Albumin [Mass/Vol] 4.0 g/dL 3.4-4.8 [facility] Serum or plasma albumin/glob ulin mass ratioOrdered By: Georges Hanna 08-24-2024 Albumin/Globulin [Mass ratio] 1.2 {ratio} 0.9-2.4 [facility] Serum or plasma alkaline aristides sphatase measurementOrdered By: Georges Hanna 08-24-2024 ALP [Catalytic activity/Vol] 119 U/L 40-129 [facility] Serum or plasma calcium belia urement (mass/volume)Ordered By: Georges Hanna 08-24-2024 Calcium [Mass/Vol] 9.1 mg/dL 7.6-11.0 [facility] Serum or plasma urea nitroge n measurement (mass/volume)Ordered By: Georges Hanna 08-24-2024 Urea nitrogen [Mass/Vol] 25 mg/dL High 4-19 [facility] Serum or plasma uric acid me asurement (mass/volume)Ordered By: Georges Hanna 08-24-2024 Urate [Mass/Vol] 4.0 mg/dL 3.5-7.2 [facility] Comment on above: The drugs N-Acetylcy steine and Metamizole may falsely depress this assay. Sodium levelOrdered By: Georges Hanna 08-24-2024 Sodium [Moles/Vol] 135 mmol/L 133-145 [facility] TSH DL <= 0.005 mIU/L QnOrde red By: Georges Hanna on 08-24-2024 TSH Qn 2.770 uIU/mL 0.300-4.200 [facility] Thyroid Stim Hormone (TSH)on 08-24-2024 TSH 2.770 uIU/mL Normal 0.300-4.200 [facility] Comment on above: Performed By: #### L [id number], L100.0100, L501.1400, L500.4050, L506.1001 #### [facility] [address] [place], [address] Total proteinOrdered By: Georges Hanna on 08-24-2024 Protein [Mass/Vol] 7.3 g/dL 5.9-8.4 [facility] Uric Acidon 08-24-2024 URIC 4.0 mg/dL Normal 3.5-7.2 [facility] Comment on above: Result Comment: The drugs N-Acetylcysteine and Metamizole may falsely depress this assay. Performed By: #### L [id number], L100.0100, L501.1400, L500.4050, L506.1001 #### [facility] [address] [place], [address] Vitamin D,25 Hydroxyon 08-24 Vitamin D 25-OH 36.3 ng/mL Normal 30-100 [facility] Comment on above: Result Comment: Sheri min D Status Deficiency: <20 ng/mL (50nmol/L) Insufficiency: 20-30 ng/mL (50-75 nmol/L) Sufficiency: 30-100 ng/mL (75-250 nmol/L) Toxicity: >100 ng/mL (>250 nmol/L) Performed By: #### L [id number], L100.0100, L501.1400, L500.4050, L506.1001 #### [facility] [address] [place], [address] White blood cell (WBC) count Ordered By: Georges Hanna on 08-24-2024 WBC (Bld) [#/Vol] 4.6 10*3/uL 4.4-11.0 [facility] Absolute lymphocyte countOrd ered By: Georges Jacques on 05-26-2024 Lymphocytes Auto (Unsp spec) [#/Vol] 1.17 10*3/uL 0.83-4.51 [facility] Absolute neutrophil countOrd ered By: Georges Jacques on 05-26-2024 Neutrophils (Bld) [#/Vol] 3.6 10*3/uL 2.0-7.7 [facility] Anion gap in Serum or Plasma Ordered By: Georges Jacques on 05-26-2024 Anion gap [Moles/Vol] 16 mmol/L High 5-15 [facility] Automated lymphocyte count a s percentage of total leukocytesOrdered By: Georges Jacques on 05-26-2024 Lymphocytes/100 WBC Auto (Unsp spec) 20.5 % 19-41 [facility] BUN/creatinine ratioOrdered By: Georges Jacques on 05-26-2024 Urea nitrogen/Creatinine [Mass ratio] 15.5 mg/mg 10-20 [facility] Basophil percentageOrdered B y: Georges Jacuqes on 05-26-2024 Basophils/100 WBC (Bld) 0.7 % 0-1 [facility] Bilirubin, totalOrdered By: Georges Jacques on 05-26-2024 Bilirubin [Mass/Vol] 0.39 mg/dL 0.00-1.30 [facility] CBC W/Diff, Automatedon Absolute Lymph 1.17 X10 3/uL Normal 0.83-4.51 [facility] Comment on above: Performed By: #### L 500.4050, L100.0100 #### [facility] [address] [place], [address] Absolute Neut 3.6 X10 3/uL Normal 2.0-7.7 [facility] Comment on above: Performed By: #### L 500.4050, L100.0100 #### [facility] [address] [place], [address] Basophils/100 WBC (Bld) 0.7 % Normal 0-1 [facility] Comment on above: Performed By: #### L 500.4050, L100.0100 #### [facility] [address] [place], [address] Eosinophils/100 WBC (Bld) 0.4 % Normal 0-5 [facility] Comment on above: Performed By: #### L 500.4050, L100.0100 #### [facility] [address] [place], [address] Erythrocyte distribution width (RBC) [Ratio] 13.7 % Normal 11.6-14.6 [facility] Comment on above: Performed By: #### L 500.4050, L100.0100 #### [facility] [address] [place], [address] Hematocrit (Bld) [Volume fraction] 41.5 % Normal 40-54 [facility] Comment on above: Performed By: #### L 500.4050, L100.0100 #### [facility] [address] [place], [address] Hemoglobin (Bld) [Mass/Vol] 15.1 g/dL Normal 13.0-16.5 [facility] [facility] Comment on above: Performed By: #### L 500.4050, L100.0100 #### [facility] [address] [place], [address] IG% 0.500 Normal 0.0-0.9 [facility] Comment on above: Result Comment: IG% - Immature Granulocytes (promyelocytes, myelocytes and metamyelocytes) > 1% indicates that a LEFT SHIFT is Present. Performed By: #### L 500.4050, L100.0100 #### [facility] [address] [place], [address] Lymphocytes/100 WBC (Bld) 20.5 % Normal 19-41 [facility] Comment on above: Performed By: #### L 500.4050, L100.0100 #### [facility] [address] [place], [address] MCH (RBC) [Entitic mass] 42.8 pg High 27.0-32.0 [facility] Comment on above: Performed By: #### L 500.4050, L100.0100 #### [facility] [address] [place], [address] MCHC (RBC) [Mass/Vol] 36.4 g/dL High 32-36 [facility] Comment on above: Performed By: #### L 500.4050, L100.0100 #### [facility] [address] [place], [address] MCV (RBC) [Entitic vol] 117.6 fL High 80-94 [facility] Comment on above: Performed By: #### L 500.4050, L100.0100 #### [facility] [address] [place], [address] Monocytes/100 WBC (Bld) 14.0 % High 0-10 [facility] Comment on above: Performed By: #### L 500.4050, L100.0100 #### [facility] [address] [place], [address] Neutrophils/100 WBC (Bld) 63.9 % Normal 47-70 [facility] Comment on above: Performed By: #### L 500.4050, L100.0100 #### [facility] [address] [place], [address] Nucleated RBC (Bld) [#/Vol] 0 10*3/uL Normal 0-5 [facility] Comment on above: Performed By: #### L 500.4050, L100.0100 #### [facility] [address] [place], [address] Platelet mean volume (Bld) [Entitic vol] 9.0 fL Normal 6.2-12.0 [facility] Comment on above: Performed By: #### L 500.4050, L100.0100 #### [facility] [address] [place], [address] Platelets (Bld) [#/Vol] 195 10*3/uL Normal 150-450 [facility] Comment on above: Performed By: #### L 500.4050, L100.0100 #### [facility] [address] [place], [address] RBC (Bld) [#/Vol] 3.53 10*6/uL Low 4.6-6.2 [facility] Comment on above: Performed By: #### L 500.4050, L100.0100 #### [facility] [address] [place], [address] RDW SD 60.7 fl High 35.1-43.9 [facility] Comment on above: Performed By: #### L 500.4050, L100.0100 #### [facility] [address] [place], [address] WBC (Bld) [#/Vol] 5.7 10*3/uL Normal 4.4-11.0 [facility] Comment on above: Performed By: #### L 500.4050, L100.0100 #### [facility] [address] [place], [address] Carbon dioxide, total [Moles /volume] in Central venous bloodOrdered By: Georges Hanna on 05-26-2024 CO2 [Moles/Vol] 17.9 mmol/L Low 21.0-32.0 [facility] Chest PA and Lateralon 05-26 Chest PA and Lateral [facility] Imaging Services [address] [place] [address] Chest PA and Lateral MR#: [id number] Acct: [id number] Name: DAREN SANDOVAL Rep #: [id number] : 1940 M 83 From: Ezequiel Paredes MD PCP: Dr. Georges Hanna MD Status: REG CLI Study: Chest PA and Lateral Date of Exam: 05/26/24 Exam# [id number] Ordering Dr: Georges Hanna MD PROCEDURE: CHEST PA AND LATERAL 05/26/2024 REASON FOR EXAM: CONGESTION OF RESPIRATORY TRACT TECHNIQUE: Frontal and lateral views of the chest. COMPARISON: None available FINDINGS: The lungs appear clear. Pulmonary vascularity appears within limits. No pleural effusion. The cardiac and mediastinal contours appear within limits. Ectatic appearing thoracic aorta with atherosclerotic change of the arch. 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 RAD/Chest PA and Lateral IMPRESSION: No evidence of acute disease. Reading Location: [id number] CC: Dr. Georges Hanna MD [employer] Motor: Signed Normal [facility] Chloride assayOrdered By: Herman Hanna on 05-26-2024 Chloride [Moles/Vol] 103 mmol/L 98-108 [facility] Comprehensive Metabolic Prof ilon 05-26-2024 Albumin [Mass/Vol] 3.9 g/dL Normal 3.4-4.8 [facility] Comment on above: Performed By: #### L 500.4050, L100.0100 #### [facility] [address] [place], [address] Albumin/Globulin [Mass ratio] 1.1 {ratio} Normal 0.9-2.4 [facility] Comment on above: Performed By: #### L 500.4050, L100.0100 #### [facility] [address] [place], [address] ALK PHOS 141 U/L High 40-129 [facility] Comment on above: Performed By: #### L 500.4050, L100.0100 #### [facility] [address] [place], [address] ALT [Catalytic activity/Vol] 10 U/L Normal <=46 [facility] Comment on above: Performed By: #### L 500.4050, L100.0100 #### [facility] [address] [place], [address] AST [Catalytic activity/Vol] 24 U/L Normal <=37 [facility] Comment on above: Performed By: #### L 500.4050, L100.0100 #### [facility] [address] [place], [address] Bilirubin [Mass/Vol] 0.39 mg/dL Normal 0.00-1.30 [facility] Comment on above: Performed By: #### L 500.4050, L100.0100 #### [facility] [address] [place], [address] BUN/CRE 15.5 RATIO Normal 10-20 [facility] Comment on above: Performed By: #### L 500.4050, L100.0100 #### [facility] [address] [place], [address] Calcium [Mass/Vol] 9.1 mg/dL Normal 7.6-11.0 [facility] Comment on above: Performed By: #### L 500.4050, L100.0100 #### [facility] [address] [place], [address] Chloride [Moles/Vol] 103 mmol/L Normal 98-108 [facility] Comment on above: Performed By: #### L 500.4050, L100.0100 #### [facility] [address] [place], [address] CO2 [Moles/Vol] 17.9 mmol/L Low 21.0-32.0 [facility] Comment on above: Performed By: #### L 500.4050, L100.0100 #### [facility] [address] [place], [address] Creatinine [Mass/Vol] 1.74 mg/dL High 0.70-1.20 [facility] Comment on above: Performed By: #### L 500.4050, L100.0100 #### [facility] [address] [place], [address] GAP 16 High 5-15 [facility] Comment on above: Performed By: #### L 500.4050, L100.0100 #### [facility] [address] [place], [address] GFR/1.73 sq M.predicted among non-blacks MDRD (S/P/Bld) [Vol rate/Area] 38 mL/min/{1.73_m2} Low >60 [facility] Comment on above: Result Comment: mL/m in/1.73m2 CKD-EPI Creatinine Equation (2020) Performed By: #### L 500.4050, L100.0100 #### [facility] [address] [place], [address] Globulin (S) [Mass/Vol] 3.6 g/dL Normal 2.2-4.2 [facility] Comment on above: Performed By: #### L 500.4050, L100.0100 #### [facility] [address] [place], [address] Glucose [Mass/Vol] 133 mg/dL High 70-99 [facility] Comment on above: Performed By: #### L 500.4050, L100.0100 #### [facility] [address] [place], [address] Potassium [Moles/Vol] 3.9 mmol/L Normal 3.3-5.1 [facility] Comment on above: Performed By: #### L 500.4050, L100.0100 #### [facility] [address] [place], [address] Sodium [Moles/Vol] 136 mmol/L Normal 133-145 [facility] Comment on above: Performed By: #### L 500.4050, L100.0100 #### [facility] [address] [place], [address] T PROT 7.4 g/dL Normal 5.9-8.4 [facility] Comment on above: Performed By: #### L 500.4050, L100.0100 #### [facility] [address] [place], [address] Urea nitrogen [Mass/Vol] 27 mg/dL High 4-19 [facility] Comment on above: Performed By: #### L 500.4050, L100.0100 #### [facility] [address] [place], [address] Eosinophil percentageOrdered By: Georges Jacques05-26-2024 Eosinophils/100 WBC (Bld) 0.4 % 0-5 [facility] Erythrocyte distribution wid th (RBC) [Ratio]Ordered By: Georges Cantor05-26-2024 Erythrocyte distribution width (RBC) [Entitic vol] 60.7 fL High 35.1-43.9 [facility] Erythrocyte distribution wid th ratioOrdered By: [facility]05-26-[facility] Erythrocyte distribution width (RBC) [Ratio] 13.7 % 11.6-14.6 [facility] Erythrocyte distribution wid th standard deviationOrdered By: [facility]05-26-2024 Erythrocyte distribution width (RBC) [Ratio] 60.7 fl High 35.1-43.9 [facility] GFR/1.73 sq M.predicted franklin g non-blacks MDRD (S/P/Bld) [Vol rate/Area]Ordered By: Georges Hanna 05-26-2024 Estimated GFR (MDRD) Non-Af Amer 38 Low >60 [facility] Comment on above: mL/min/1.73m2 CKD-EP I Creatinine Equation (2020) Glomerular filtration rate ( GFR) estimation/1.73 sq m using serum, plasma, or whole bOrdered By: Georges Hanna on 05-26-2024 GFR/1.73 sq M.predicted among non-blacks MDRD (S/P/Bld) [Vol rate/Area] 38 mL/min/{1.73_m2} Low >60 [facility] Comment on above: mL/min/1.73m2 CKD-EP I Creatinine Equation (2020) Hematocrit Auto (Bld) [Volum e fraction]Ordered By: Georges Hanna on 05-26-2024 Hematocrit (Bld) [Volume fraction] 41.5 % 40-54 [facility] Hemoglobin measurementOrdere d By: Georges Hanna on 05-26-2024 Hemoglobin (Bld) [Mass/Vol] 15.1 g/dL 13.0-16.5 [facility] Immature granulocytes/100 WB C Auto (Bld)Ordered By: Georges Hanna on 05-26-2024 Immature granulocytes/100 WBC (Bld) 0.500 % 0.0-0.9 [facility] Comment on above: IG% - Immature Granu locytes (promyelocytes, myelocytes and metamyelocytes) > 1% indicates that a LEFT SHIFT is Present. Influenza virus A and B and SARS-CoV-2 (COVID-19) and Respiratory syncytial virus RNAOrdered By: Georges Hanna on 05-26-2024 SARS-CoV-2 (COVID-19) RNA GWENDOLYN+probe Ql (Unsp spec) [facility] - Chemistry and C hemistry - challengeOrdered By: Georges Hanna on 05-26-2024 AST [Catalytic activity/Vol] 24 U/L <38 [facility] Lymphocytes Auto (Unsp spec) [#/Vol]Ordered By: Georges Hanna on 05-26-2024 Lymphocytes (Bld) [#/Vol] 1.17 10*3/uL 0.83-4.51 [facility] Lymphocytes/100 WBC Auto (Un sp spec)Ordered By: Georges Hanna on 05-26-2024 Lymphocytes/100 WBC (Bld) 20.5 % 19-41 [facility] M100.678on 05-26-2024 M100.678 Pending SARS-CoV-2 (COVID 19) Negative INFLUENZA A Negative INFLUENZA B Negative RSV PCR Negative Normal [facility] Comment on above: Performed By: #### L 501.9520, L100.0100, L501.1400, L500.4050, L506.1001 #### [facility] [address] [place], [address] MCV (mean corpuscular volume ) determinationOrdered By: Georges Hanna on 05-26-2024 MCV (RBC) [Entitic vol] 117.6 fL High 80-94 [facility] Mean corpuscular hemoglobin (MCH) determinationOrdered By: Georges Hanna 05-26-2024 MCH (RBC) [Entitic mass] 42.8 pg High 27.0-32.0 [facility] Mean corpuscular hemoglobin concentration (MCHC) determinationOrdered By: Georges Hanna 05-26-2024 MCHC (RBC) [Mass/Vol] 36.4 g/dL High 32-36 [facility] Mean platelet volume determi nationOrdered By: Georges Hanna on 05-26-2024 Platelet mean volume (Bld) [Entitic vol] 9.0 fL 6.2-12.0 [facility] Monocyte percentageOrdered B y: Georges Hanna on 05-26-2024 Monocytes/100 WBC (Bld) 14.0 % High 0-10 [facility] Neutrophil percentageOrdered By: Georges Hanna 05-26-2024 Neutrophils/100 WBC (Bld) 63.9 % 47-70 [facility] Nucleated red blood cell per centageOrdered By: Georges Hanna 05-26-2024 Nucleated RBC/100 WBC (Bld) [Ratio] 0 % 0-5 [facility] Platelet countOrdered By: Herman Hanna on 05-26-2024 Platelets (Bld) [#/Vol] 195 10*3/uL 150-450 [facility] Potassium (Unsp spec) [Mass/ Vol]Ordered By: Georges Hanna on 05-26-2024 Potassium [Moles/Vol] 3.9 mmol/L 3.3-5.1 [facility] Potassium measurement (mass/ volume)Ordered By: Georges Hanna on 05-26-2024 Potassium (Unsp spec) [Mass/Vol] 3.9 mmol/L 3.3-5.1 [facility] RBC Auto (Bld) [#/Vol]Ordere d By: Georges Hanna on 05-26-2024 RBC (Bld) [#/Vol] 3.53 10*6/uL Low 4.6-6.2 [facility] Serum creatinine measurement (mass/volume)Ordered By: Georges Hanna on 05-26-2024 Creatinine [Mass/Vol] 1.74 mg/dL High 0.70-1.20 [facility] Serum globulin measurementOr dered By: Georges Hanna 05-26-2024 Globulin (S) [Mass/Vol] 3.6 g/dL 2.2-4.2 [facility] Serum glucose measurement (m ass/volume)Ordered By: Georges Hanna 05-26-2024 Glucose [Mass/Vol] 133 mg/dL High 70-99 [facility] Serum or plasma alanine [place] otransferase (ALT) measurementOrdered By: Georges Hanna 05-26-2024 ALT [Catalytic activity/Vol] 10 U/L <47 [facility] Serum or plasma albumin belia urement (mass/volume)Ordered By: Georges Hanna 05-26-2024 Albumin [Mass/Vol] 3.9 g/dL 3.4-4.8 [facility] Serum or plasma albumin/glob ulin mass ratioOrdered By: Georges Hanna 05-26-2024 Albumin/Globulin [Mass ratio] 1.1 {ratio} 0.9-2.4 [facility] Serum or plasma alkaline aristides sphatase measurementOrdered By: Georges Hanna 05-26-2024 ALP [Catalytic activity/Vol] 141 U/L High 40-129 [facility] Serum or plasma calcium belia urement (mass/volume)Ordered By: Georges Hanna 05-26-2024 Calcium [Mass/Vol] 9.1 mg/dL 7.6-11.0 [facility] Serum or plasma urea nitroge n measurement (mass/volume)Ordered By: Georges Hanna 05-26-2024 Urea nitrogen [Mass/Vol] 27 mg/dL High 4-19 [facility] Sodium levelOrdered By: Georges Hanna on 05-26-2024 Sodium [Moles/Vol] 136 mmol/L 133-145 [facility] Total proteinOrdered By: Georges Hanna on 05-26-2024 Protein [Mass/Vol] 7.4 g/dL 5.9-8.4 [facility] White blood cell (WBC) count Ordered By: Georges Hanna on 05-26-2024 WBC (Bld) [#/Vol] 5.7 10*3/uL 4.4-11.0 [facility] 33-VZ-Vhnfune DOrdered By: Srinath Hanna on 02-17-2024 Vitamin D 25-Hydroxy 27.7 ng/mL [facility] Comment on above: Vitamin D 25(OH) Sta tus Range Deficiency <20 ng/mL (50nmol/L) Insufficiency 20 - 30 ng/mL (50 - 75 nmol/L) Sufficiency 30 - 100 ng/mL (75 - 250 nmol/L) Toxicity >100 ng/mL (>250 nmol/L) Absolute neutrophil countOrd ered By: Georges Hanna on 02-17-2024 Neutrophils (Bld) [#/Vol] 3.9 10*3/uL 2.0-7.7 [facility] Albumin to globulin ratioOrd ered By: Georges Hanna on 02-17-2024 Albumin/Globulin [Mass ratio] 0.8 {ratio} Low 0.9-2.4 [facility] Basophil percentageOrdered B y: Georges Hanna on 02-17-2024 Basophils/100 WBC (Bld) 0.7 % 0-1 [facility] Bilirubin, totalOrdered By: Georges Hanna on 02-17-2024 Bilirubin [Mass/Vol] 0.60 mg/dL 0.20-1.00 [facility] Comment on above: For patients on eltr ombopag therapy, use of Dimension [place] TBIL is not recommended. Blood urea nitrogen (BUN)/cr eatinine ratioOrdered By: Georges Hanna on 02-17-2024 Urea nitrogen/Creatinine [Mass ratio] 10.3 mg/mg 10- [facility] CBC W/Diff, Automatedon 01-26 Absolute Lymph 1.07 X10 3/uL Normal 0.83-4.51 [facility] Comment on above: Performed By: #### L 100.0100, L501.9520, L506.1000, L500.4050, L500.4100, L501.1400 #### [facility] [address] [place], [address] Absolute Neut 3.9 X10 3/uL Normal 2.0-7.7 [facility] Comment on above: Performed By: #### L 100.0100, L501.9520, L506.1000, L500.4050, L500.4100, L501.1400 #### [facility] [address] [place], [address] Basophils/100 WBC (Bld) 0.7 % Normal 0-1 [facility] Comment on above: Performed By: #### L 100.0100, L501.9520, L506.1000, L500.4050, L500.4100, L501.1400 #### [facility] [address] [place], [address] Eosinophils/100 WBC (Bld) 1.2 % Normal 0-5 [facility] Comment on above: Performed By: #### L 100.0100, L501.9520, L506.1000, L500.4050, L500.4100, L501.1400 #### [facility] [address] [place], [address] Erythrocyte distribution width (RBC) [Ratio] 12.1 % Normal 11.6-14.6 [facility] Comment on above: Performed By: #### L 100.0100, L501.9520, L506.1000, L500.4050, L500.4100, L501.1400 #### [facility] [address] [place], [address] Hematocrit (Bld) [Volume fraction] 40.8 % Normal 40-54 [facility] Comment on above: Performed By: #### L 100.0100, L501.9520, L506.1000, L500.4050, L500.4100, L501.1400 #### [facility] [address] [place], [address] Hemoglobin (Bld) [Mass/Vol] 14.9 g/dL Normal 13.0-16.5 [facility] Comment on above: Performed By: #### L 100.0100, L501.9520, L506.1000, L500.4050, L500.4100, L501.1400 #### [facility] [address] [place], [address] IG% 0.700 Normal 0.0-0.9 [facility] Comment on above: Result Comment: IG% - Immature Granulocytes (promyelocytes, myelocytes and metamyelocytes) > 1% indicates that a LEFT SHIFT is Present. Performed By: #### L 100.0100, L501.9520, L506.1000, L500.4050, L500.4100, L501.1400 #### [facility] [address] [place], [address] Lymphocytes/100 WBC (Bld) 18.4 % Low 19-41 [facility] Comment on above: Performed By: #### L 100.0100, L501.9520, L506.1000, L500.4050, L500.4100, L501.1400 #### [facility] [address] [place], [address] MCH (RBC) [Entitic mass] 44.1 pg High 27.0-32.0 [facility] Comment on above: Performed By: #### L 100.0100, L501.9520, L506.1000, L500.4050, L500.4100, L501.1400 #### [facility] [address] [place], [address] MCHC (RBC) [Mass/Vol] 36.5 g/dL High 32-36 [facility] Comment on above: Performed By: #### L 100.0100, L501.9520, L506.1000, L500.4050, L500.4100, L501.1400 #### [facility] [address] [place], [address] MCV (RBC) [Entitic vol] 120.7 fL High 80-94 [facility] Comment on above: Performed By: #### L 100.0100, L501.9520, L506.1000, L500.4050, L500.4100, L501.1400 #### [facility] [address] [place], [address] Monocytes/100 WBC (Bld) 12.2 % High 0-10 [facility] Comment on above: Performed By: #### L 100.0100, L501.9520, L506.1000, L500.4050, L500.4100, L501.1400 #### [facility] [address] [place], [address] Neutrophils/100 WBC (Bld) 66.8 % Normal 47-70 [facility] Comment on above: Performed By: #### L 100.0100, L501.9520, L506.1000, L500.4050, L500.4100, L501.1400 #### [facility] [address] [place], [address] Nucleated RBC (Bld) [#/Vol] 0 10*3/uL Normal 0-5 [facility] Comment on above: Performed By: #### L 100.0100, L501.9520, L506.1000, L500.4050, L500.4100, L501.1400 #### [facility] [address] [place], [address] Platelet mean volume (Bld) [Entitic vol] 9.1 fL Normal 6.2-12.0 [facility] Comment on above: Performed By: #### L 100.0100, L501.9520, L506.1000, L500.4050, L500.4100, L501.1400 #### [facility] [address] [place], [address] Platelets (Bld) [#/Vol] 238 10*3/uL Normal 150-450 [facility] Comment on above: Performed By: #### L 100.0100, L501.9520, L506.1000, L500.4050, L500.4100, L501.1400 #### [facility] [address] [place], [address] RBC (Bld) [#/Vol] 3.38 10*6/uL Low 4.6-6.2 [facility] Comment on above: Performed By: #### L 100.0100, L501.9520, L506.1000, L500.4050, L500.4100, L501.1400 #### [facility] [address] [place], [address] RDW SD 54.7 fl High 35.1-43.9 [facility] Comment on above: Performed By: #### L 100.0100, L501.9520, L506.1000, L500.4050, L500.4100, L501.1400 #### [facility] [address] [place], [address] WBC (Bld) [#/Vol] 5.8 10*3/uL Normal 4.4-11.0 [facility] Comment on above: Performed By: #### L 100.0100, L501.9520, L506.1000, L500.4050, L500.4100, L501.1400 #### [facility] [address] [place], [address] Carbon dioxide measurementOr dered By: Georges Jacques on 02-17-2024 CO2 [Moles/Vol] 24.0 mmol/L 21.0-32.0 [facility] Chloride measurementOrdered By: Georges Hanna on 02-17-2024 Chloride [Moles/Vol] 104 mmol/L 98-107 [facility] Comprehensive Metabolic Prof ilon 02-17-2024 Albumin [Mass/Vol] 3.3 g/dL Normal 3.2-5.0 [facility] Comment on above: Performed By: #### L 100.0100, L501.9520, L506.1000, L500.4050, L500.4100, L501.1400 #### [facility] [address] [place], [address] Albumin/Globulin [Mass ratio] 0.8 {ratio} Low 0.9-2.4 [facility] Comment on above: Performed By: #### L 100.0100, L501.9520, L506.1000, L500.4050, L500.4100, L501.1400 #### [facility] [address] [place], [address] ALK P 125 U/L High 45-117 [facility] Comment on above: Performed By: #### L 100.0100, L501.9520, L506.1000, L500.4050, L500.4100, L501.1400 #### [facility] [address] [place], [address] ALT [Catalytic activity/Vol] 22 U/L Normal 16-61 [facility] Comment on above: Performed By: #### L 100.0100, L501.9520, L506.1000, L500.4050, L500.4100, L501.1400 #### [facility] [address] [place], [address] AST [Catalytic activity/Vol] 20 U/L Normal 15-37 [facility] Comment on above: Performed By: #### L 100.0100, L501.9520, L506.1000, L500.4050, L500.4100, L501.1400 #### [facility] [address] [place], [address] Bilirubin [Mass/Vol] 0.60 mg/dL Normal 0.20-1.00 [facility] Comment on above: Result Comment: For patients on eltrombopag therapy, use of Dimension [place] TBIL is not recommended. Performed By: #### L 100.0100, L501.9520, L506.1000, L500.4050, L500.4100, L501.1400 #### [facility] [address] [place], [address] BUN/CRE 10.3 RATIO Normal 10-20 [facility] Comment on above: Performed By: #### L 100.0100, L501.9520, L506.1000, L500.4050, L500.4100, L501.1400 #### [facility] [address] [place], [address] CA,Total 9.1 mg/dL Normal 8.5-10.1 [facility] Comment on above: Performed By: #### L 100.0100, L501.9520, L506.1000, L500.4050, L500.4100, L501.1400 #### [facility] [address] [place], [address] Chloride [Moles/Vol] 104 mmol/L Normal 98-107 [facility] Comment on above: Performed By: #### L 100.0100, L501.9520, L506.1000, L500.4050, L500.4100, L501.1400 #### [facility] [address] [place], [address] CO2 [Moles/Vol] 24.0 mmol/L Normal 21.0-32.0 [facility] Comment on above: Performed By: #### L 100.0100, L501.9520, L506.1000, L500.4050, L500.4100, L501.1400 #### [facility] [address] [place], [place], [id number] Creatinine [Mass/Vol] 1.85 mg/dL High 0.70-1.30 [facility] Comment on above: Result Comment: The validity of the calculated GFR GFRAA in patients over 70 years has not been determined. Clinical correlation is essential. Performed By: #### L 100.0100, L501.9520, L506.1000, L500.4050, L500.4100, L501.1400 #### [facility] [address] [place], [place], [id number] EST GFR - AA 45 mL/min Low >60 [facility] Comment on above: Result Comment: Afri can Vietnamese GFR Calc Performed By: #### L 100.0100, L501.9520, L506.1000, L500.4050, L500.4100, L501.1400 #### [facility] [address] [place], [place], [id number] GAP 7 Normal 5-15 [facility] Comment on above: Performed By: #### L 100.0100, L501.9520, L506.1000, L500.4050, L500.4100, L501.1400 #### [facility] [address] [place], [place], [id number] GFR/1.73 sq M.predicted among non-blacks MDRD (S/P/Bld) [Vol rate/Area] 37 mL/min/{1.73_m2} Low >60 [facility] Comment on above: Result Comment: Non- GFR Calc Performed By: #### L 100.0100, L501.9520, L506.1000, L500.4050, L500.4100, L501.1400 #### [facility] [address] [place], [address] Globulin (S) [Mass/Vol] 4.1 g/dL Normal 2.2-4.2 [facility] Comment on above: Performed By: #### L 100.0100, L501.9520, L506.1000, L500.4050, L500.4100, L501.1400 #### [facility] [address] [place], [address] Glucose [Mass/Vol] 133 mg/dL High 74-106 [facility] Comment on above: Result Comment: Fast ing Glucose result greater than or equal to 126 mg/dL suggests DIABETES MELLITUS per A.D.A. criteria. Performed By: #### L 100.0100, L501.9520, L506.1000, L500.4050, L500.4100, L501.1400 #### [facility] [address] [place], [address] Potassium [Moles/Vol] 4.5 mmol/L Normal 3.5-5.1 [facility] Comment on above: Performed By: #### L 100.0100, L501.9520, L506.1000, L500.4050, L500.4100, L501.1400 #### [facility] [address] [place], [address] Sodium [Moles/Vol] 135 mmol/L Low 136-145 [facility] Comment on above: Performed By: #### L 100.0100, L501.9520, L506.1000, L500.4050, L500.4100, L501.1400 #### [facility] [address] [place], [address] T PROT 7.4 g/dL Normal 6.4-8.2 [facility] Comment on above: Performed By: #### L 100.0100, L501.9520, L506.1000, L500.4050, L500.4100, L501.1400 #### [facility] [address] [place], [address] Urea nitrogen [Mass/Vol] 19 mg/dL High 7-18 [facility] Comment on above: Performed By: #### L 100.0100, L501.9520, L506.1000, L500.4050, L500.4100, L501.1400 #### [facility] [address] [place], [address] Eosinophil percentageOrdered By: Georges Jacques on 02-17-2024 Eosinophils/100 WBC (Bld) 1.2 % 0-5 [facility] Erythrocyte distribution wid th (RBC) [Ratio]Ordered By: Georges Jacques on 02-17-2024 Erythrocyte distribution width (RBC) [Entitic vol] 54.7 fL High 35.1-43.9 [facility] Erythrocyte distribution wid th ratioOrdered By: Georges Jacques on 02-17-2024 Erythrocyte distribution width (RBC) [Ratio] 12.1 % 11.6-14.6 [facility] Estimated glomerular filtrat ion rate (GFR) AmericanOrdered By: Georges Cantorok on 02-17-2024 Estimated GFR (MDRD) Amer 45 mL/min Low >60 [facility] Comment on above: GFR Calc Glomerular filtration rate ( GFR) estimationOrdered By: Georges Hanna on 02-17-2024 Estimated GFR (MDRD) Non-Af Amer 37 mL/min Low >60 [facility] Comment on above: Non- GFR Calc Glucose measurementOrdered B y: Georges Jacques on 02-17-2024 Glucose [Mass/Vol] 133 mg/dL High 74-106 [facility] Comment on above: Fasting Glucose resu lt greater than or equal to 126 mg/dL suggests DIABETES MELLITUS per A.D.A. criteria. Hematocrit Auto (Bld) [Volum e fraction]Ordered By: Georges Hanna on 02-17-2024 Hematocrit (Bld) [Volume fraction] 40.8 % 40-54 [facility] Hemoglobin measurementOrdere d By: Georges Hanna on 02-17-2024 Hemoglobin (Bld) [Mass/Vol] 14.9 g/dL 13.0-16.5 [facility] High density lipoprotein (HD L) measurementOrdered By: Georges Hanna on 02-17-2024 Cholesterol in HDL [Mass/Vol] 41 mg/dL >40 [facility] Comment on above: The drugs N-Acetylcy steine and Metamizole may falsely depress this assay. Reference Range HDL <40 mg/dL Low HDL Cholesterol HDL >or= 60 mg/dL High HDL Cholesterol Immature granulocytes/100 WB C Auto (Bld)Ordered By: Georges Hanna on 02-17-2024 Immature granulocytes/100 WBC (Bld) 0.700 % 0.0-0.9 [facility] Comment on above: IG% - Immature Granu locytes (promyelocytes, myelocytes and metamyelocytes) > 1% indicates that a LEFT SHIFT is Present. Laboratory - Chemistry and C hemistry - challengeOrdered By: Georges Hanna on 02-17-2024 AST [Catalytic activity/Vol] 20 U/L 15-37 [facility] Lipid Profileon 02-17-2024 Cholesterol [Mass/Vol] 273 mg/dL High 200 [facility] Comment on above: Result Comment: <200 mg/dL Desirable 200-240 mg/dL Borderline >240 mg/dL High Risk Performed By: #### L 501.9520, L100.0100, L501.1400, L500.4050, L506.1001 #### [facility] [address] [place], [address] Cholesterol in HDL [Mass/Vol] 41 mg/dL Normal [facility] Comment on above: Result Comment: The drugs N-Acetylcysteine and Metamizole may falsely depress this assay. Reference Range HDL <40 mg/dL Low HDL Cholesterol HDL >or= 60 mg/dL High HDL Cholesterol Performed By: #### L 501.9520, L100.0100, L501.1400, L500.4050, L506.1001 #### [facility] [address] [place], [address] LDL TNP Normal 0-130 [facility] Comment on above: Performed By: #### L 501.9520, L100.0100, L501.1400, L500.4050, L506.1001 #### [facility] [address] [place], [address] Triglyceride [Mass/Vol] 506 mg/dL High [facility] Comment on above: Result Comment: The drugs N-Acetylcysteine and Metamizole may falsely depress this assay. TRIGLYCERIDE IS GREATER THAN 400 mg/dL. LDL RESULT IS INVALID AND WILL NOT BE REPORTED. Serum Triglycerides Reference Interval Normal <150 mg/dL Borderline high 150 - 199 mg/dL High 200 - 499 mg/dL Very High > or = 500 mg/dL Performed By: #### L 501.9520, L100.0100, L501.1400, L500.4050, L506.1001 #### [facility] [address] [place], [address] VLDL TNP Normal 5-40 [facility] Comment on above: Performed By: #### L 501.9520, L100.0100, L501.1400, L500.4050, L506.1001 #### [facility] [address] [place], [place], [id number] Low density lipoprotein (LDL ) cholesterol measurementOrdered By: Georges Hanna on 02-17-2024 LDL Cholesterol TNP [facility] Comment on above: Test not performed Lymphocytes Auto (Unsp spec) [#/Vol]Ordered By: Georges Hanna on 02-17-2024 Lymphocytes (Bld) [#/Vol] 1.07 10*3/uL 0.83-4.51 [facility] Lymphocytes/100 WBC Auto (Un sp spec)Ordered By: Georges Hanna on 02-17-2024 Lymphocytes/100 WBC (Bld) 18.4 % Low 19-41 [facility] MCV (mean corpuscular volume ) determinationOrdered By: Georges Hanna on 02-17-2024 MCV (RBC) [Entitic vol] 120.7 fL High 80-94 [facility] Mean corpuscular hemoglobin (MCH) determinationOrdered By: Georges Hanna on 02-17-2024 MCH (RBC) [Entitic mass] 44.1 pg High 27.0-32.0 [facility] Mean corpuscular hemoglobin concentration (MCHC) determinationOrdered By: Georges Hanna on 02-17-2024 MCHC (RBC) [Mass/Vol] 36.5 g/dL High 32-36 [facility] Mean platelet volume determi nationOrdered By: Georges Hanna on 02-17-2024 Platelet mean volume (Bld) [Entitic vol] 9.1 fL 6.2-12.0 [facility] Monocyte percentageOrdered B y: Georges Hanna on 02-17-2024 Monocytes/100 WBC (Bld) 12.2 % High 0-10 [facility] Neutrophil percentageOrdered By: Georges Hanna on 02-17-2024 Neutrophils/100 WBC (Bld) 66.8 % 47-70 [facility] Nucleated red blood cell per centageOrdered By: Georges Hanna on 02-17-2024 Nucleated RBC/100 WBC (Bld) [Ratio] 0 % 0-5 [facility] Platelet countOrdered By: Herman Hanna on 02-17-2024 Platelets (Bld) [#/Vol] 238 10*3/uL 150-450 [facility] Potassium measurementOrdered By: Georges Hanna on 02-17-2024 Potassium [Moles/Vol] 4.5 mmol/L 3.5-5.1 [facility] RBC Auto (Bld) [#/Vol]Ordere d By: Georges Hanna on 02-17-2024 RBC (Bld) [#/Vol] 3.38 10*6/uL Low 4.6-6.2 [facility] Serum anion gap measurementO rdered By: Georges Hanna on 02-17-2024 Anion gap [Moles/Vol] 7 mmol/L 5-15 [facility] Serum globulin measurementOr dered By: Georges Hanna on 02-17-2024 Globulin (S) [Mass/Vol] 4.1 g/dL 2.2-4.2 [facility] Serum or plasma alanine latham otransferase (ALT) measurementOrdered By: Georges Hanna on 02-17-2024 ALT [Catalytic activity/Vol] 22 U/L 16-61 [facility] Serum or plasma albumin belia urement (mass/volume)Ordered By: Georges Hanna on 02-17-2024 Albumin [Mass/Vol] 3.3 g/dL 3.2-5.0 [facility] Serum or plasma alkaline aristides sphatase measurementOrdered By: Georges Hanna on 02-17-2024 ALP [Catalytic activity/Vol] 125 U/L High 45-117 [facility] Serum or plasma calcium belia urement (mass/volume)Ordered By: Georges Hanna on 02-17-2024 Calcium [Mass/Vol] 9.1 mg/dL 8.5-10.1 [facility] Serum or plasma cholesterol measurement (mass/volume)Ordered By: Georges Hanna on 02-17-2024 Cholesterol [Mass/Vol] 273 mg/dL High <200 [facility] Comment on above: <200 mg/dL Desirable 200-240 mg/dL Borderline >240 mg/dL High Risk Serum or plasma creatinine m easurement (mass/volume)Ordered By: Georges Hanna 02-17-2024 Creatinine [Mass/Vol] 1.85 mg/dL High 0.70-1.30 [facility] Comment on above: The validity of the calculated GFR & GFRAA in patients over 70 years has not been determined. Clinical correlation is essential. Serum or plasma urea nitroge n measurement (mass/volume)Ordered By: Georges Hanna on 02-17-2024 Urea nitrogen [Mass/Vol] 19 mg/dL High 7-18 [facility] Serum or plasma uric acid me asurement (mass/volume)Ordered By: Georges Hanna 02-17-2024 Urate [Mass/Vol] 4.3 mg/dL 3.5-7.2 [facility] Comment on above: The drugs N-Acetylcy steine and Metamizole may falsely depress this assay. Sodium levelOrdered By: Georges Hanna on 02-17-2024 Sodium [Moles/Vol] 135 mmol/L Low 136-145 [facility] TSH QnOrdered By: Georges Hanna o n 02-17-2024 Thyroid Stimulating Hormone (TSH) 2.310 uIU/mL 0.358-3.740 [facility] Thyroid Stim Hormone (TSH)on 02-17-2024 TSH 2.310 uIU/mL Normal 0.358-3.740 [facility] Comment on above: Performed By: #### L 501.9520, L100.0100, L501.1400, L500.4050, L506.1001 #### [facility] [address] [place], [place], [address] Total proteinOrdered By: Georges Hanna on 02-17-2024 Protein [Mass/Vol] 7.4 g/dL 6.4-8.2 [facility] Triglycerides measurementOrd ered By: Georges Hanna on 02-17-2024 Triglyceride [Mass/Vol] 506 mg/dL High <199 [facility] Comment on above: The drugs N-Acetylcy steine and Metamizole may falsely depress this assay. TRIGLYCERIDE IS GREATER THAN 400 mg/dL. LDL RESULT IS INVALID AND WILL NOT BE REPORTED.Serum Triglycerides Reference Interval Normal <150 mg/dL Borderline high 150 - 199 mg/dL High 200 - 499 mg/dL Very High > or = 500 mg/dL Uric Acidon 02-17-2024 URIC 4.3 mg/dL Normal 3.5-7.2 [facility] Comment on above: Result Comment: The drugs N-Acetylcysteine and Metamizole may falsely depress this assay. Performed By: #### L 501.9520, L100.0100, L501.1400, L500.4050, L506.1001 #### [facility] [address] [place], [place], [id number] Very low density lipoprotein (VLDL) cholesterol measurementOrdered By: Georges Hanna on 02-17-2024 VLDL Cholesterol TNP [facility] Comment on above: Test not performed Vitamin D,25 Hydroxyon 02-16 Vitamin D 25-OH 27.7 ng/mL Normal [facility] Comment on above: Result Comment: Sheri min D 25(OH) Status Range Deficiency <20 ng/mL (50nmol/L) Insufficiency 20 - 30 ng/mL (50 - 75 nmol/L) Sufficiency 30 - 100 ng/mL (75 - 250 nmol/L) Toxicity >100 ng/mL (>250 nmol/L) Performed By: #### L 100.0100, L501.9520, L506.1000, L500.4050, L500.4100, L501.1400 #### [facility] [place], [address] White blood cell (WBC) count Ordered By: Georges Hanna on 02-17-2024 WBC (Bld) [#/Vol] 5.8 10*3/uL 4.4-11.0 [facility] CNOVon 05-20-2023 CNOV Office Visit (UCWSTR ) DAREN SANDOVAL ([id number]) 1940 M Date Time Provider Department 05/20/23 11:30 AM RADHA LIAO [facility] During your visit today, we recorded the following information about you: Temperature Pulse Respiration Blood pressure 99.1 degrees 64/minute 18/minute 122/78 Weight 91 kg Radha Liao PA 05/20/2023 12:25 PM Signed This note was created using [employer]. Subjective Daren Sandoval is a 82 year old male. HPI 82-year-old male presents for cough and chest congestion for 2 weeks. Pt has dementia, so helps provide history. states patient started coughing a few weeks ago. Cough has gotten worse. He is coughing up some phlegm, but mainly just seems congested in the chest per . He has a little bit of nasal congestion. No fevers. No chest pain or shortness of breath. No history of COPD, asthma or pneumonia. No sick contacts that they are aware of. No other complaint. PAST MEDICAL HISTORY Diagnosis Date Diarrhea Essential hypertension, benign Other and unspecified hyperlipidemia Personal history of colonic polyps Colon polyps Unspecified hemorrhoids without mention of complication Hemorrhoids PAST SURGICAL HISTORY Procedure Laterality Date COLONOSCOPY FLX DX W/COLLJ SPEC WHEN PFRMD Colonoscopy RPR 1ST INGUN HRNA AGE 5 YRS/> REDUCIBLE Hernia repair, inguinal ALLERGIES Patient has no known allergies. MEDICATIONS SIMVASTATIN 20 MG TAB Take one(1) tablet daily. LISINOPRIL 20 MG TAB Take one(1) tablet daily. FAMILY HISTORY Problem Relation Age of Onset Alcohol/Drug Father Cancer Father LUNG Hypertension Mother Heart Mother Diabetes Daughter Social History Tobacco Use Smoking status: Never Smokeless tobacco: Never Substance Use Topics Alcohol use: Yes Comment: occasional Drug use: No Review of Systems Constitutional: Negative for chills and fever. HENT: Positive for congestion. Negative for sore throat. Respiratory: Positive for cough. Negative for shortness of breath. Gastrointestinal: Negative for diarrhea and vomiting. Objective BP 122/78 Pulse 64 Temp 37.3 ?C (99.1 ?F) (Tympanic) Resp 18 Wt 91 kg (200 lb 9.9 oz) SpO2 96% Physical Exam Vitals and nursing note reviewed. Constitutional: General: He is not in acute distress. Appearance: Normal appearance. He is not toxic-appearing. HENT: Right Ear: Tympanic membrane and ear canal normal. Left Ear: Tympanic membrane and ear canal normal. Nose: Nose normal. Mouth/Throat: Mouth: Mucous membranes are moist. Pharynx: Oropharynx is clear. Eyes: Conjunctiva/sclera: Conjunctivae normal. Cardiovascular: Rate and Rhythm: Normal rate and regular rhythm. Pulmonary: Effort: Pulmonary effort is normal. Breath sounds: Normal breath sounds. No wheezing, rhonchi or rales. Skin: General: Skin is warm and dry. Neurological: Mental Status: He is alert. Assessment and Plan ASSESSMENT/PLAN: 1. Subacute cough - ICD9: 786.2, ICD10: R05.2 (primary diagnosis) - XR CHEST 2V FRONTAL/LAT- Mild left infrahilar opacity may be reflective of atelectasis, however a small focus of bronchopneumonia not excluded in the appropriate clinical setting. Short-term follow-up radiographs in 6-8 weeks may be obtained to document resolution. 2. Bronchopneumonia - ICD9: 485, ICD10: J18.0 -Chest x-ray reveals mild left infrahilar opacity may be atelectasis however small focus of bronchopneumonia cannot be excluded. Patient has had cough for 2 weeks and now low-grade fever. Will cover for pneumonia. -Patient has no comorbidities other than dementia, hyperlipidemia. No chronic heart, renal, or history of cancer. Will treat with doxycycline. -Recommend follow-up with PCP in 6 to 8 weeks to ensure resolution. -Discussed with patient and red flag signs and when to be seen in ER including any chest pain, shortness of breath, worsening symptoms. Pulse ox 96%, no acute distress on exam today. Diagnosis and treatment plan were discussed and questions were answered to the patient's satisfaction. Pt acknowledged understanding of concepts and follow up plan. Specific signs and symptoms that would indicate the need for higher level of care were discussed in detail warranting prompt ER evaluation. ROSEANNA Vences Allergies As of Date: 05/20/2023 (No Known Allergies) Date Reviewed: 05/20/2023 Reviewed by: Teagan Moscoso LPN - Fully Assessed Reason for Visit: Cough [28] Cmt: Cough and congestion x 2 weeks Primary Visit Diagnosis:Subacute cough [R05.2] Other Visit Diagnosis:Bronchopneu monia [J18.0] Order(s):XR CHEST 2V FRONTAL/LAT [[id number]] Order #: [id number] FUTURE doxycycline monohydrate 100 mg tabletTake 1 tablet by mouth two times a day for 7 days.Disp: 14 tabletRfl: 0 Prescriptions as of 05/20/2023 - doxycycline monohydrate 100 mg tablet Ta (more content not included)... Normal [facility] XR CHEST 2V FRONTAL/LATon XR CHEST 2V FRONTAL/LAT * * *Final Repor t* * * DATE OF EXAM: May 20 2023 11:55AM WOX 5291 - XR CHEST 2V FRONTAL/LAT / PROCEDURE REASON: Subacute cough * * * * Physician Interpretation * * * * EXAMINATION: CHEST RADIOGRAPH (2 VIEW FRONTAL and LATERAL) CLINICAL HISTORY: Subacute cough MQ: XC2_6 EXAM DATE/TIME: 05/20/2023 11:55 AM COMPARISON: No relevant prior studies available. RESULT: Lines, tubes, and devices: None. Lungs and pleura: Mild left infrahilar opacity. No pleural effusion. No pneumothorax. Cardiomediastinal silhouette: Normal cardiomediastinal silhouette. Bones and soft tissues: Degenerative changes are present within the thoracic spine. IMPRESSION: Mild left infrahilar opacity may be reflective of atelectasis, however a small focus of bronchopneumonia not excluded in the appropriate clinical setting. Short-term follow-up radiographs in 6-8 weeks may be obtained to document resolution. [employer]: BRIAN Transcribe Date/Time: May 20 2023 12:16P Dictated by : SAMANTHA STEELE MD This examination was interpreted and the report reviewed and electronically signed by: SAMANTHA STEELE MD on May 20 2023 12:17PM EST [id number] Normal [facility] XR Chest PA and Lateralon IMPRESSION: Mild left infrahilar opacity may be reflective of atelectasis, however a small focus of bronchopneumonia not excluded in the appropriate clinical setting. Short-term follow-up radiographs in 6-8 weeks may be obtained to document resolution. [employer]: [facility] Transcribe Date/Time: May 20 2023 12:16P Dictated by : SAMANTHA STEELE MD This examination was interpreted and the report reviewed and electronically signed by: SAMANTHA STEELE MD on May 20 2023 12:17PM EST DIVISION OF RADIOLOGY * * *Final Report* * * DATE OF EXAM: May 20 2023 11:55AM WOX [id number] - XR CHEST 2V FRONTAL/LAT / PROCEDURE REASON: Subacute cough * * * * Physician Interpretation * * * * EXAMINATION: CHEST RADIOGRAPH (2 VIEW FRONTAL & LATERAL) CLINICAL HISTORY: Subacute cough MQ: XC2_6 EXAM DATE/TIME: 05/20/2023 11:55 AM COMPARISON: No relevant prior studies available. RESULT: Lines, tubes, and devices: None. Lungs and pleura: Mild left infrahilar opacity. No pleural effusion. No pneumothorax. Cardiomediastinal silhouette: Normal cardiomediastinal silhouette. Bones and soft tissues: Degenerative changes are present within the thoracic spine. DIVISION OF RADIOLOGY Provider, [facility] - 05/20/2023 * * *Final Report* * * DATE OF EXAM: May 20 2023 11:55AM WOX [id number] - XR CHEST 2V FRONTAL/LAT / PROCEDURE REASON: Subacute cough * * * * Physician Interpretation * * * * EXAMINATION: CHEST RADIOGRAPH (2 VIEW FRONTAL & LATERAL) CLINICAL HISTORY: Subacute cough MQ: XC2_6 EXAM DATE/TIME: 05/20/2023 11:55 AM COMPARISON: No relevant prior studies available. RESULT: Lines, tubes, and devices: None. Lungs and pleura: Mild left infrahilar opacity. No pleural effusion. No pneumothorax. Cardiomediastinal silhouette: Normal cardiomediastinal silhouette. Bones and soft tissues: Degenerative changes are present within the thoracic spine. IMPRESSION IMPRESSION: Mild left infrahilar opacity may be reflective of atelectasis, however a small focus of bronchopneumonia not excluded in the appropriate clinical setting. Short-term follow-up radiographs in 6-8 weeks may be obtained to document resolution. [employer]: [employer]RI[employer] Transcribe Date/Time: May 20 2023 12:16P Dictated by : SAMANTHA STEELE MD This examination was interpreted and the report reviewed and electronically signed by: SAMANTHA STEELE MD on May 20 2023 12:17PM [facility] Radiology Study observation (narrative) Filipe reyes [facility] XR Chest PA and LateralOrder ed By: [facility] Provider on 05-20-2023 [facility] Vital Signs Date Time Vital Sign Value Performing Clinician Ousmane arambula 07-01-2023 22:48-0400 Body mass index (BMI) [Ratio] 26.4 kg/m2 [facility] 07-01-2023 22:48-0400 Body weight 90.7 kg [facility] 07-01-2023 22:25-0400 Body height 185.42 cm [facility] 07-01-2023 22:25-0400 Body temperature 97.8 [degF] [facility] 07-01-2023 22:25-0400 Diastolic blood pressure 61 mm[Hg] [facility] 07-01-2023 22:25-0400 Heart rate 82 /min [facility] 07-01-2023 22:25-0400 Respiratory rate 16 /min [facility] 07-01-2023 22:25-0400 SaO2% (BldA) [Mass fraction] 97 % [facility] 07-01-2023 22:25-0400 Systolic blood pressure 136 mm[Hg] [facility] 05-20-2023 11:32-0400 Body temperature 99.1 [degF] Krislyn Aberegg PA Work Phone: [facility] 05-20-2023 11:32-0400 Body weight 91 kg Krislyn Aberegg PA Work Phone: [facility] 05-20-2023 11:32-0400 Diastolic blood pressure 78 mm[Hg] Krislyn Aberegg PA Work Phone: [facility] 05-20-2023 11:32-0400 Heart rate 64 /min Krislyn Aberegg PA Work Phone: [facility] 05-20-2023 11:32-0400 Respiratory rate 18 /min Krislyn Aberegg PA Work Phone: [facility] 05-20-2023 11:32-0400 SaO2% (BldA) [Mass fraction] 96 % Krislyn Aberegg PA Work Phone: [facility] 05-20-2023 11:32-0400 Systolic blood pressure 122 mm[Hg] Krislyn Aberegg PA Work Phone: [facility] Encounters Encounter Date Encounter Type Care Provider Facility Start: 10-20-2024 ambulatory Georges Hanna Facility:[facility] Start: 08-24-2024 End: 08-24-[address] Georges Hanna MD Work Phone: -Laboratory Start: 08-24-2024 End: 08-24-[address] Georges Hanna MD -Laboratory Work Phone: Start: 08-24-2024 End: 08-24-2024 ambulatory Georges Hanna Facility:[facility] Start: 05-26-2024 End: 05-26-[address] Georges Hanna MD Work Phone: [facility] Work Phone: Start: 05-26-2024 End: 05-26-[address] Georges Hanan MD -Laboratory, Specimen Work Phone: Start: 05-26-2024 End: 05-26-[address] Georges Hanna MD Work Phone: [facility] Work Phone: Start: 05-26-2024 End: 05-26-[address] Georges Hanna MD -Laboratory Work Phone: Start: 05-26-2024 End: 05-26-2024 ambulatory [facility] Facility:[facility] Start: 02-17-2024 End: 02-17-[address] Georges Hanna MD -Laboratory Work Phone: Start: 02-17-2024 End: 02-17-2024 ambulatory [facility] Facility:[facility] Start: 07-01-2023 End: 07-02-2023 Emergency department patient visit [facility]-Emergency Department Work Phone: Start: 05-20-2023 End: 05-20-2023 ambulatory Facility:[facility] Start: 05-20-2023 End: 05-20-2023 Subsequent hospital visit by physician [facility] Work Phone: Radiology Comment on above: Subacute cough [R05. 2] Start: 05-20-2023 End: 05-20-2023 Patient encounter procedure Radha CONDON Work Phone: [facility] Care Comment on above: Subacute cough (Prim kena Dx); Bronchopneumonia Procedures Date Procedure Procedure Detail Performing Clinician Start: 08-24-2024 Vitamin D, 25-hydrox y measurement Dr. Georges Hanna MD Work Phone: Comment on above: Vitamin D StatusDefi ciency: <20 ng/mL (50nmol/L)Insufficiency: 20-30 ng/mL (50-75 nmol/L)Sufficiency: 30-100 ng/mL (75-250 nmol/L)Toxicity: >100 ng/mL (>250 nmol/L) Start: 05-26-2024 X-ray of chest, PA a nd lateral views Dr. Georges Hanna MD Work Phone: Start: 05-26-2024 SARS-CoV-2, Influenz a & RSV (PCR) Dr. Georges Hanna MD Work Phone: Start: 07-01-2023 CT of head without contrast Start: 05-20-2023 Radiologic exam ches t 2 views Radha CONDON Work Phone: Plan of Treatment Date Care Activity Detail Author Start: 10-27-2023 Covid-19 Vaccine () Covid-19 Vaccine () [facility] Start: 10-27-2023 Influenza vaccination Influenza Vaccine (#1) [facility] Start: 07-02-2023 [facility] Start: 02-25-2023 Advance Directive Discussion Advance Directive Discussion [facility] Start: 02-25-2023 Depression Assessment Depression Assessment [facility] Start: 10-26-2022 Covid-19 Vaccine ( season) Covid-19 Vaccine ( season) [facility] Start: 10-26-2022 Influenza vaccination Influenza Vaccine (#1) [facility] Start: 04-12-2015 Urine microalbumin profile DTaP,Tdap,Td Vaccine (3 - Tdap) [facility] Start: 09-03-2010 Diabetes Screening Diabetes Screening [facility] Start: 04-12-2006 Pneumococcal Vaccine: 65+ (2 of 2 - PCV) Pneumococcal Vaccine: 65+ (2 of 2 - PCV) [facility] Start: 1999 RSV Vaccine (1 - 1-dose 60+ series) RSV Vaccine (1 - 1-dose 60+ series) [facility] Start: 12-23-1989 Shingrix Vaccine (1 of 2) Shingrix Vaccine (1 of 2) [facility] Start: 12-23-1957 Anxiety Screening Anxiety Screening [facility] Start: 12-23-1957 Depression Screening Depression Screening [facility] Patient Education ED Head Injury (Adult) [facility] Work Phone: Patient referral [facility] Work Phone: Immunizations Immunization Date Immunization Notes Care Provider [facility] 04-12-2005 pneumococcal polysaccharide vaccine, 23 valent Radha CONDON Work Phone: [facility] 04-12-2005 tetanus and diphther ia toxoids, adsorbed, preservative free, for adult use (2 Lf of tetanus toxoid and 2 Lf of diphtheria toxoid) Radha CONDON Work Phone: [facility] 06-05-1994 diphtheria and tetan us toxoids, adsorbed for pediatric use Radha CONDON Work Phone: [facility] Payers Date Payer Category Payer Private Health Insurance [id number] 2024 Self-pay 2023 Medicare HUMANA MEDICARE HUMANA GOLD PLUS [id number] 2023-[facility] [phone] [place] [id number] O [id number] 2023 Private Health Insurance [id number] Unknown [employer] [place]/ PRO CLAIMS [id number] Unknown [id number] Unknown [id number] Unknown [id number] Unknown [id number] Unknown [id number] Social History Date Type Detail Facility Start: 05-20-2023 End: 07-01-2023 Tobacco smoking status NHIS Never smoked tobacco [facility] Start: 05-20-2023 Tobacco use and exposure Smokeless tobacco non-user [facility] Start: 05-20-2023 Alcohol intake Current drinke r of alcohol (finding) [facility] Start: 05-20-2023 History of Social function [facility] Start: 05-20-2023 Tobacco use panel [facility] Start: 1940 Sex Assigned At Not on file [facility] Start: 07-01-2023 Tobacco smoking stat [facility] Unknown if ever smoked [facility] Start: 1940 Sex Assigned At Male W [facility] Start: 05-30-2024 End: 05-30-2024 Sex Male (finding) [facility] Radiology Diagnostic study note 05-27-2024 Note Date & Type Note Facility 05-27-2024 Radiology Diagnostic study note [facility] Imaging Services [address] [place] [address] Chest PA and Lateral MR#: [id number] Acct: [id number] Name: DAREN SANDOVAL Rep #: [id number] : 1940 M 83 From: Andrea Paredes MD PCP: Dr. Georges Hanna MD Status: REG C Study:Chest PA and Lateral Date of Exam: 05/26/24 Exam# [id number] Ordering Dr: Georges Hanna MD PROCEDURE: CHEST PA AND LATERAL 05/26/2024 REASON FOR EXAM: CONGESTION OF RESPIRATORY TRACT TECHNIQUE: Frontal and lateral views of the chest. COMPARISON: None available FINDINGS: The lungs appear clear. Pulmonary vascularity appears within limits. No pleural effusion. The cardiac and mediastinal contours appear within limits. Ectatic appearing thoracic aorta with atherosclerotic change of the arch. 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 RAD/Chest PA and Lateral IMPRESSION: No evidence of acute disease. Reading Location: [id number] CC: Dr. Georges Hanna MD ~ [employer]: Signed [facility] Discharge summary 07-02-2023 Note Date & Type Note Facility 07-02-2023 Discharge summary Note Date/Time July 01, 2023 10:51p m [facility] Medical Records Department [address] [place] [address] Emergency Department Summary 07/01/23 MR#: [id number] Acct: [id number] Name: DAREN SANDOVAL Rep #:[id number] : 1940 82 From: Leander Ospina MD PCP: Care Physician,No Primary Status :REG ER Location: ED HPI HPI - Fall History of Present Illness Chief Complaint: Fall Informant: patient and family (x2) Narrative Narrative: 82-year-old male with history of dementia lives at home with family had an unwitnessed fall in the bathroom. Family went to check on him and they saw thathe was alert and awake but had evidence of injury to his right head and upper extremity. He denies having any pain. Patient does not remember and history from him is limited due to his dementia. States he feels fine. Takes no anticoagulants, just baby aspirin no other antiplatelets. [facility] History Dementia Allergy/AdvReac Type Severity Reaction Status Date / Time No Known Allergies Allergy Verified 07/01/23 22:28 Social History Smoking Status: Never smoker ROS ROS ED Review of Systems ROS Unobtainable: other Details: Limited ROS due to dementia Eyes Eyes: Denies change in vision ENT ENT ED: Denies ear pain or epistaxis Cardiovascular Cardiovascular: Denies chest pain Respiratory/Chest Respiratory/Chest: Denies dyspnea Gastrointestinal Gastrointestinal: Denies abdominal pain, nausea or vomiting Musculoskeletal Musculoskeletal: Denies back pain, extremity pain or neck pain Integumentary Denies laceration Neurologic Neurologic: Denies headache(s), paresthesias or weakness EXAM Physical Exam Const Vital Signs: 07/01/23 22:25 07/01/23 22:48 Temperature 97.8 F Temperature Source Temporal Pulse Rate 82 Respiratory Rate 16 Respiratory Effort Normal Blood Pressure 136/61 H Blood Pressure Mean 86 Pulse Ox 97 Oxygen Delivery Method Room Air Room Air Positive well nourished and well developed General Appearance ED: well developed and NAD HEENT Reports TM's clear and nasal mucous membranes and turbinates normal HEENT Narrative: Tenderness, contusion, hematoma right frontal parietal. Large around 15 cm diameter. It is boggy. There is no palpable crepitance or depression although this is limited due to the size of the hematoma. No Patel sign no periorbital ecchymosis. No CSF otorhinorrhea. trauma and hematoma Face and Sinus: facial tenderness Tympanic Membrane ED: Yes TM's clear Eyes PERRL and EOMs intact bilaterally Visual Acuity: other Other Details: no entrapment or pain with extraocular movements Neck full ROM and supple General: Negative for tenderness Chest Wall inspection of chest normal and palpation of chest normal Chest: symmetrical chest wall rise; Negative for crepitus or tenderness Resp normal respiratory effort and clear to auscultation bilaterally Percussion: other equal BS bilat Cardio Cardio Narrative: Faint heart sounds Rate: regular rate Rhythm: regular rhythm GI normal to inspection, nondistended, normoactive bowel sounds, soft to palpation and non-tender Back/Spine normal ROM Cervical Spine: Negative for cervical spine tenderness Thoracic Spine / Upper Back: Negative for thoracic spinal tenderness Lumbar Spine / Lower Back: Negative for lumbar spinal tenderness Extremity full ROM Extremity Narrative: Ecchymosis to the lateral aspect of the right elbow and the ulnar aspect of the right wrist. No tenderness. Full range of motion both of these joints without any pain including pronation supination at the wrist. The other 3 extremities move also without any signs of trauma or pain. General Extremety ED: Negative for tenderness Neuro CN's II-XII intact bilaterally, moves all extremities, no focal motor deficits and no sensory deficits noted Neuro Narrative: Alert and oriented to person and family, at baseline according to family Sahra Coma Scale: document GCS findings Spontaneous Obeys Commands Confused 14 Sensorium / Orientation: awake and alert Psych mental status grossly normal and thought process normal Skin no wounds Lesions: no lesions Rashes: no rashes MDM MDM MDM Narrative Medical decision making narrative: He has evidence of bruising to various aspect of the right upper extremity but he can move everything okay and there is no bony tenderness I do not think he needs any x-rays family in agreement. We did perform a CT of the head though. CT of the head was obtained in order to rule out intracranial injury, I reviewedthe images and report which I agree with, negative for anything acute. Patient doing well, given family appropriate discharge instructions and reasons to return. Radiography Diagnostic Testing: Clinical Impression(s) from Imaging Studies Brain CT 07/01/23 22:47 IMPRESSION: Moderate right parietal scalp hematoma. No intracranial hemorrhage. Electronically Signed: Kyle Sauceda MD at 23:29 EDT , Discharge Plan Triage Chief Complaint: Fall ED Provider: Leander Ospina Dx/Rx/DC Orders Clinical Impression: Closed head injury without loss of consciousness, Contusion of multiple sites of right arm Instructions: ED Head Injury (Adult) Primary Care Provider: Care Physician,No Primary Referrals: Doctor,Your [Non-Staff] - As Needed Disposition Disposition: Home, Self Care What to do if you have Problems For any increased pain, shortness of breath, bleeding, nausea or vomiting, chestpain, or any unexpected problems, contact your Primary Care Provider. Call [facility] ([phone]) or report to the closest Emergency Room. Call 911 if necessary. 07/02/23 0034 <Electronically signed by Leander Ospnia MD> Cosigner Signature (if applicable): CC: No Primary Care Physician ~ Signed [facility] Work Phone: Progress note 05-20-2023 Note Date & Type Note Facility 05-20-2023 Note HNO ID: [id number] Author: ALISSA PEREZ RT(R) Service: Radiology Author Type: Technologist Type: Progress Notes Filed: 05/20/2023 11:53 Note Text: Radiology Service Progress Note PATIENT NAME: Daren Sandoval DATE OF SERVICE: May 20, 2023 TIME: 11:47 AM PATIENT IDENTITY VERIFICATION COMPLETED USING TWO (2) IDENTIFIERS: Name and Date of confirmed by patient verbally. FALL SCREENING: Has the patient had 2 falls in the last year or 1 fall with injury or currently using an Ambulatory Assistive Device (Walker, Cane, Wheelchair, Crutches, etc.)? Yes, Patient High Risk for Falls What interventions were put in place to prevent falls during this visit? Offered Assistance with Transfers/Clothing and Instructed Patient to Remain Seated (Not on Exam Table) Until Exam PATIENT GENDER DATA: Male PATIENT RELEVANT IMPLANT DATA REVIEWED: Not Applicable PATIENT PRESENTS WITH AN IMPLANTABLE OR ATTACHED WARRANTY MANAGER: No RADIOLOGY DEPARTMENT: General X-ray: Exam(s) Completed: Chest X-Ray PERIPHERAL IV DATA: Not applicable SIGNED BY: RT Shanelle(R) May 20, 2023 11:47 AM [facility] Progress note 05-20-2023 Note Date & Type Note Facility 05-20-2023 Note HNO ID: [id number] Author: RADHA LIAO PA Service: ? Author Type: Physician Room Server Type: Progress Notes Filed: 05/20/2023 12:25 Note Text: This note was created using [employer]. Subjective Daren Sandoval is a 82 year old male. HPI 82-year-old male presents for cough and chest congestion for 2 weeks. Pt has dementia, so helps provide history. states patient started coughing a few weeks ago. Cough has gotten worse. He is coughing up some phlegm, but mainly just seems congested in the chest per . He has a little bit of nasal congestion. No fevers. No chest pain or shortness of breath. No history of COPD, asthma or pneumonia. No sick contacts that they are aware of. No other complaint. PAST MEDICAL HISTORY Diagnosis Date Diarrhea Essential hypertension, benign Other and unspecified hyperlipidemia Personal history of colonic polyps Colon polyps Unspecified hemorrhoids without mention of complication Hemorrhoids PAST SURGICAL HISTORY Procedure Laterality Date COLONOSCOPY FLX DX W/COLLJ SPEC WHEN PFRMD Colonoscopy RPR 1ST INGUN HRNA AGE 5 YRS/> REDUCIBLE Hernia repair, inguinal ALLERGIES Patient has no known allergies. MEDICATIONS SIMVASTATIN 20 MG TAB Take one(1) tablet daily. LISINOPRIL 20 MG TAB Take one(1) tablet daily. FAMILY HISTORY Problem Relation Age of Onset Alcohol/Drug Father Cancer Father LUNG Hypertension Mother Heart Mother Diabetes Daughter Social History Tobacco Use Smoking status: Never Smokeless tobacco: Never Substance Use Topics Alcohol use: Yes Comment: occasional Drug use: No Review of Systems Constitutional: Negative for chills and fever. HENT: Positive for congestion. Negative for sore throat. Respiratory: Positive for cough. Negative for shortness of breath. Gastrointestinal: Negative for diarrhea and vomiting. Objective BP 122/78 Pulse 64 Temp 37.3 ?C (99.1 ?F) (Tympanic) Resp 18 Wt 91 kg (200 lb 9.9 oz) SpO2 96% Physical Exam Vitals and nursing note reviewed. Constitutional: General: He is not in acute distress. Appearance: Normal appearance. He is not toxic-appearing. HENT: Right Ear: Tympanic membrane and ear canal normal. Left Ear: Tympanic membrane and ear canal normal. Nose: Nose normal. Mouth/Throat: Mouth: Mucous membranes are moist. Pharynx: Oropharynx is clear. Eyes: Conjunctiva/sclera: Conjunctivae normal. Cardiovascular: Rate and Rhythm: Normal rate and regular rhythm. Pulmonary: Effort: Pulmonary effort is normal. Breath sounds: Normal breath sounds. No wheezing, rhonchi or rales. Skin: General: Skin is warm and dry. Neurological: Mental Status: He is alert. Assessment and Plan ASSESSMENT/PLAN: 1. Subacute cough - ICD9: 786.2, ICD10: R05.2 (primary diagnosis) - XR CHEST 2V FRONTAL/LAT- Mild left infrahilar opacity may be reflective of atelectasis, however a small focus of bronchopneumonia not excluded in the appropriate clinical setting. Short-term follow-up radiographs in 6-8 weeks may be obtained to document resolution. 2. Bronchopneumonia - ICD9: 485, ICD10: J18.0 -Chest x-ray reveals mild left infrahilar opacity may be atelectasis however small focus of bronchopneumonia cannot be excluded. Patient has had cough for 2 weeks and now low-grade fever. Will cover for pneumonia. -Patient has no comorbidities other than dementia, hyperlipidemia. No chronic heart, renal, or history of cancer. Will treat with doxycycline. -Recommend follow-up with PCP in 6 to 8 weeks to ensure resolution. -Discussed with patient and red flag signs and when to be seen in ER including any chest pain, shortness of breath, worsening symptoms. Pulse ox 96%, no acute distress on exam today. Diagnosis and treatment plan were discussed and questions were answered to the patient's satisfaction. Pt acknowledged understanding of concepts and follow up plan. Specific signs and symptoms that would indicate the need for higher level of care were discussed in detail warranting prompt ER evaluation. ROSEANNA Vences [facility] History of Present illness Narrative 05-20-2023 Alissa Perez RT(R) - 05/20/2023 11:50 AM EDT Note Date & Type Note Facility 05-20-2023 History of Presen t illness Narrative Radiology Service Progress Note PATIENT NAME: Daren Sandoval DATE OF SERVICE: May 20, 2023 TIME: 11:47 AM PATIENT IDENTITY VERIFICATION COMPLETED USING TWO (2) IDENTIFIERS: Name and Date of confirmed by patient verbally. FALL SCREENING: Has the patient had 2 falls in the last year or 1 fall with injury or currently using an Ambulatory Assistive Device (Walker, Cane, Wheelchair, Crutches, etc.)? Yes, Patient High Risk for Falls What interventions were put in place to prevent falls during this visit? Offered Assistance with Transfers/Clothing and Instructed Patient to Remain Seated (Not on Exam Table) Until Exam PATIENT GENDER DATA: Male PATIENT RELEVANT IMPLANT DATA REVIEWED: Not Applicable PATIENT PRESENTS WITH AN IMPLANTABLE OR ATTACHED WARRANTY MANAGER: No RADIOLOGY DEPARTMENT: General X-ray: Exam(s) Completed: Chest X-Ray PERIPHERAL IV DATA: Not applicable SIGNED BY: RT Shanelle(R) May 20, 2023 11:47 AM documented in this encounter [facility] History of Present illness Narrative 05-20-2023 Radha Liao PA - 05/20/2023 11:42 AM EDT Note Date & Type Note Facility 05-20-2023 History of Presen t illness Narrative This note was created using [employer]. Subjective Daren Sandoval is a 82 year old male. HPI 82-year-old male presents for cough and chest congestion for 2 weeks. Pt has dementia, so helps provide history. states patient started coughing a few weeks ago. Cough has gotten worse. He is coughing up some phlegm, but mainly just seems congested in the chest per . He has a little bit of nasal congestion. No fevers. No chest pain or shortness of breath. No history of COPD, asthma or pneumonia. No sick contacts that they are aware of. No other complaint. PAST MEDICAL HISTORY Diagnosis Date Diarrhea Essential hypertension, benign Other and unspecified hyperlipidemia Personal history of colonic polyps Colon polyps Unspecified hemorrhoids without mention of complication Hemorrhoids PAST SURGICAL HISTORY Procedure Laterality Date COLONOSCOPY FLX DX W/COLLJ SPEC WHEN PFRMD Colonoscopy RPR 1ST INGUN HRNA AGE 5 YRS/> REDUCIBLE Hernia repair, inguinal ALLERGIES Patient has no known allergies. MEDICATIONS SIMVASTATIN 20 MG TAB Take one(1) tablet daily. LISINOPRIL 20 MG TAB Take one(1) tablet daily. FAMILY HISTORY Problem Relation Age of Onset Alcohol/Drug Father Cancer Father LUNG Hypertension Mother Heart Mother Diabetes Daughter Social History Tobacco Use Smoking status: Never Smokeless tobacco: Never Substance Use Topics Alcohol use: Yes Comment: occasional Drug use: No Review of Systems Constitutional: Negative for chills and fever. HENT: Positive for congestion. Negative for sore throat. Respiratory: Positive for cough. Negative for shortness of breath. Gastrointestinal: Negative for diarrhea and vomiting. Objective BP 122/78 Pulse 64 Temp 37.3 C (99.1 F) (Tympanic) Resp 18 Wt 91 kg (200 lb 9.9 oz) SpO2 96% Physical Exam Vitals and nursing note reviewed. Constitutional: General: He is not in acute distress. Appearance: Normal appearance. He is not toxic-appearing. HENT: Right Ear: Tympanic membrane and ear canal normal. Left Ear: Tympanic membrane and ear canal normal. Nose: Nose normal. Mouth/Throat: Mouth: Mucous membranes are moist. Pharynx: Oropharynx is clear. Eyes: Conjunctiva/sclera: Conjunctivae normal. Cardiovascular: Rate and Rhythm: Normal rate and regular rhythm. Pulmonary: Effort: Pulmonary effort is normal. Breath sounds: Normal breath sounds. No wheezing, rhonchi or rales. Skin: General: Skin is warm and dry. Neurological: Mental Status: He is alert. Assessment and Plan ASSESSMENT/PLAN: 1. Subacute cough - ICD9: 786.2, ICD10: R05.2 (primary diagnosis) - XR CHEST 2V FRONTAL/LAT- Mild left infrahilar opacity may be reflective of atelectasis, however a small focus of bronchopneumonia not excluded in the appropriate clinical setting. Short-term follow-up radiographs in 6-8 weeks may be obtained to document resolution. 2. Bronchopneumonia - ICD9: 485, ICD10: J18.0 -Chest x-ray reveals mild left infrahilar opacity may be atelectasis however small focus of bronchopneumonia cannot be excluded. Patient has had cough for 2 weeks and now low-grade fever. Will cover for pneumonia. -Patient has no comorbidities other than dementia, hyperlipidemia. No chronic heart, renal, or history of cancer. Will treat with doxycycline. -Recommend follow-up with PCP in 6 to 8 weeks to ensure resolution. -Discussed with patient and red flag signs and when to be seen in ER including any chest pain, shortness of breath, worsening symptoms. Pulse ox 96%, no acute distress on exam today. Diagnosis and treatment plan were discussed and questions were answered to the patient's satisfaction. Pt acknowledged understanding of concepts and follow up plan. Specific signs and symptoms that would indicate the need for higher level of care were discussed in detail warranting prompt ER evaluation. ROSEANNA Vences documented in this encounter [facility] Evaluation note Note Date & Type Note Facility Evaluation note Diagnosis Subacute cough- Primary Cough Bronchopneumonia Bronchopneumonia, organism unspecified documented in this encounter [facility] Evaluation note Note Date & Type Note Facility Evaluation note No assessment information availa [facility] Work Phone: Evaluation note Note Date & Type Note Facility Evaluation note Diagnosis Subacute cough Cough documented in this encounter [facility] Reason for referral (narrative) Note Date & Type Note Facility Reason for referral (narrative) No reason for referral information available [facility] Work Phone: Summary Purpose Family History No Family History Records FoundNo Family History Records Found Advance Directives No Advanced Directives Records Found Advance Directive Response Recorded Date/ Time Living Will Yes July 01, 2023 10 :46pm Power of Pill Packer Yes July 01, 2023 10:46pm Name of Medical Power of Pill Packer -ricardo July 01, 2023 10:46pm Chief Complaint and Reason for Visit Chief Complaint FALL Additional Source Comments Source Comments (unrecognize d section and content) In the event this informatio n is protected by the Federal Confidentiality of Alcohol and Drug Abuse Patient Records regulations: The Federal rules restrict any use of the information to criminally investigate or prosecute any alcohol or drug abuse patient.[facility] the event this information is protected by the Federal Confidentiality of Alcohol and Drug Abuse Patient Records regulations: The Federal rules restrict any use of the information to criminally investigate or prosecute any alcohol or drug abuse patient.[facility] Reason for Visit (unrecogniz ed section and content) Reason Comments Cough Cough and congestion x 2 weeks (unrecognized sect ion and content) No Status Records FoundNo Status Records Found INFORMATION SOURCE (unrecogn ized section and content) DATE CREATED AUTHOR 05/21/2023 [facility] DATE CREATED AUTHOR AUTHOR'S ORGANIZ ATION 10/13/2024 [facility] (unrecognized sec tion and content) Team Status: Active Member Role Status Dates Dr. Ata Smith III, MD Family Provider Active No Primary Care Physician Primary Care Provider Active Team Status: Inactive Member Role Status Dates Dr. Leander Ospina MD Emergency Provider Active No Primary Care Physician Primary Care Provider Active Team Status: Active Member Role Status Dates Dr. Ata Smith III, MD Family Provider Active Dr. Georges Hanna MD Primary Care Provider Active Team Status: Inactive Member Role Status Dates Dr. Georges Hanna MD Primary Care Provider Active Start: February 17, 2024 End: February 17, 2024 Dr. Georges Hanna MD Attending Provider Active Start: February 17, 2024 End: February 17, 2024 Dr. Georges Hanna MD Referring Provider Active Start: February 17, 2024 End: February 17, 2024 Team Status: Inactive Member Role Status Dates Dr. Georges Hanna MD Primary Care Provider Active Start: May 26, 2024 End: May 26, 2024 Dr. Georges Hanna MD Attending Provider Active Start: May 26, 2024 End: May 26, 2024 Dr. Georges Hanna MD Referring Provider Active Start: May 26, 2024 End: May 26, 2024 Team Status: Active Member Role Status Dates Dr. Georges Hanna MD Primary Care Provider Active Start: May 26, 2024 Dr. Georges Hanna MD Attending Provider Active Start: May 26, 2024 Dr. Georges Hanna MD Referring Provider Active Start: May 26, 2024 Team Status: Active Member Role/Relationship Status Dates Dr. Ata Smith III, MD Family Provider Active Dr. Georges Hanna MD Primary Care Provider Active Team Status: Inactive Member Role/Relationship Status Dates Dr. Georges Hanna MD Primary Care Provider Active Start: May 26, 2024 End: May 26, 2024 Dr. Georges Hanna MD Attending Provider Active Start: May 26, 2024 End: May 26, 2024 Dr. Georges Hanna MD Referring Provider Active Start: May 26, 2024 End: May 26, 2024 Team Status: Inactive Member Role/Relationship Status Dates Dr. Georges Hanna MD Primary Care Provider Active Start: May 26, 2024 End: May 26, 2024 Dr. Georges Hanna MD Attending Provider Active Start: May 26, 2024 End: May 26, 2024 Dr. Georges Hanna MD Referring Provider Active Start: May 26, 2024 End: May 26, 2024 Team Status: Inactive Member Role/Relationship Status Dates Dr. Georges Hanna MD Primary Care Provider Active Start: August 24, 2024 End: August 24, 2024 Dr. Georges Hanna MD Attending Provider Active Start: August 24, 2024 End: August 24, 2024 Dr. Georges Hanna MD Referring Provider Active Start: August 24, 2024 End: August 24, 2024 Goals (unrecognized section and content) Goals may be documented in a n alternate sectionGoals may be documented in an alternate sectionGoals may be documented in an alternate sectionGoals may be documented in an alternate section FOR RECORDS PERTAINING TO PATIENTS WHO ARE OR HAVE BEEN ENROLLED IN A CHEMICAL DEPENDENCY/SUBSTANCEABUSE PROGRAM, SOME INFORMATION MAY BE OMITTED. This clinical summary was aggregated from multiple sources. Caution should be exercised in using it in the provision of clinical care. This summary normalizes information from multiple sources, and as a consequence, information in this document may materially change the coding, format and clinical context of patient data. In addition, data may be omitted in some cases. CLINICAL DECISIONS SHOULD BE BASED ON THE PRIMARY CLINICAL RECORDS. [employer] [facility] provides no warranty or guarantee of the accuracy or completeness of information in this document.
== END | disposition home or self-care (01) ==
LOC: PSN 13:33
PROVIDERS: PCP Family Medicine Geriatric Medicine; Referring Provider Family Medicine Geriatric Medicine; Visit Provider Family Medicine Geriatric Medicine
DX: J98.8 Other specified respiratory disorders (principal)
CPT/HCPCS: 87631

== ENCOUNTER → 2025-02-15 | Outpatient (CLI) | payer MEDICARE, SELFPAY ==
[2025-02-15 12:06] LABS: Hematocrit 43.1 % (40-54); Hemoglobin 15.5 g/dL (13.0-16.5); Immature Granulocytes Count 0.040 X10^3/uL (0.0-0.0); Mean Corp Hgb Conc 36.0 g/dL (32-36); Mean Corpuscular Volume 120.4 fL (80-94); Mean Platelet Vol. 9.9 fl (6.2-12.0); NRBC Flagged by Analyzer 0 % (0-5); Platelet Count 224 K/mm3 (150-450); RBC Distribution Width CV 12.2 % (11.6-14.6); RBC Distribution Width SD 54.8 fl (35.1-43.9); Red Blood Count 3.58 M/mm3 (4.6-6.2); White Blood Count 5.4 K/mm3 (4.4-11.0)
[2025-02-15 13:14] LABS: AST(SGOT) 22 U/L (<=37); Alanine Aminotransfer ALT/SGPT 13 U/L (<=46); Albumin, Serum 3.9 g/dL (3.4-4.8); Alkaline Phosphatase 137 U/L (40-129); Anion Gap 17 (5-15); BUN 17 mg/dL (4-19); BUN/Creat Ratio 9.9 RATIO (10-20); Calcium,Total 9.1 mg/dL (7.6-11.0); Carbon Dioxide 19.5 mmol/L (21.0-32.0); Chloride 102 mmol/L (98-108); Globulin 3.2 g/dL (2.2-4.2); Glucose 136 mg/dL (70-99); Potassium 3.7 mmol/L (3.5-5.1); Uric Acid 3.8 mg/dL (3.5-7.2); Vitamin D,25 Hydroxy 32.1 ng/mL (30-100)
[2025-02-15 19:45] LABS: Xtra Tube Kwok EXTRA TUBE
== END | disposition home or self-care (01) ==
LOC: POLAB3 11:45
PROVIDERS: PCP Family Medicine Geriatric Medicine; Visit Provider Family Medicine Geriatric Medicine
DX: I10 Essential (primary) hypertension (principal); E55.9 Vitamin D deficiency, unspecified; M10.9 Gout, unspecified
CPT/HCPCS: 36415; 80053; 82306; 84443; 84550; 85025